=== PATIENT | female | born 1950 | race Caucasian/White ===

== ENCOUNTER → 2020-08-24 12:49 | Outpatient (CLI) | payer MEDICARE, SELFPAY ==
--- NOTE | ~2020-08-24 | DEXA_ITS ---
Bone Density Report Name: Sunita Lopez Age: 70 Sex: Female Ethnicity: White Date of : 1950 Indication: postmenopausal; screening for osteoporosis; height loss; history of glucocorticoids; rheumatoid arthritis; secondary osteoporosis; Referring Provider: Jacqueline Flaherty Study: Bone densitometry was performed. Exam Date: August 24, 2020 Accession number: [id number] Bone Density: Region BMD T-score Z-score Classification AP Spine (L1, L3, L4) 0.924 -1.2 1.0 Osteopenia Femoral Neck (Left) 0.626 -2.0 -0.1 Osteopenia Total Hip (Left) 0.940 0.0 1.6 Normal Femoral Neck (Right) 0.615 -2.1 -0.2 Osteopenia Total Hip (Right) 0.892 -0.4 1.2 Normal Total Hip Mean 0.916 -0.2 1.4 Normal World Health Organization criteria for BMD impression classify patients as: Normal (T-score at or above -1.0), Osteopenia (T-score between -1.0 and -2.5), or Osteoporosis (T-score at or below -2.5). 10-year Fracture Risk(1): Major Osteoporotic Fracture 20% Hip Fracture 4.6% Reported Risk Factors: [place] (), Neck BMD=0.615, BMI=49.3, glucocorticoids, rheumatoid arthritis, secondary osteoporosis (1) FRAX(R) Version 3.08. Fracture probability calculated for an untreated patient. Fracture probability may be lower if the patient has received treatment. Previous Exams: Region Exam Age BMD T-score BMD Change BMD Change Date g/cm2 vs Baseline vs Previous AP Spine(L1, L3, L4) 08/24/2020 70 0.924 -1.2 -0.038* -0.032* 04/11/2018 67 0.956 -0.9 -0.007 0.032* 10/09/2014 64 0.923 -1.2 -0.039* -0.039* 04/10/2011 60 0.963 -0.8 0.001 0.001 05/04/2006 55 0.962 -0.8 Total Hip(Left) 08/24/2020 70 0.940 0.0 -0.081* -0.027 04/11/2018 67 0.967 0.2 -0.054* 0.001 10/09/2014 64 0.966 0.2 -0.055* -0.012 04/10/2011 60 0.978 0.3 -0.043* -0.043* 05/04/2006 55 1.021 0.7 Total Hip(Right) 08/24/2020 70 0.892 -0.4 -0.086* -0.018 04/11/2018 67 0.909 -0.3 -0.068* -0.025 10/09/2014 64 0.934 -0.1 -0.044* -0.010 04/10/2011 60 0.944 0.0 -0.034* -0.034* 05/04/2006 55 0.978 0.3 *Denotes significance at 95% confidence level, LSC for AP Spine = 0.022 g/cm2, LSC for Total Hip = 0.027 g/cm2 Clinical Information Provided by Patient: Has taken Glucocorticoids Has rheum
== END ==
PROVIDERS: PCP Family Medicine; Visit Provider Internal Medicine Endocrinology, Diabetes & Metabolism
DX: Z78.0 Asymptomatic menopausal state (principal); M85.89 Other specified disorders of bone density and structure, multiple sites
CPT/HCPCS: 77080

== ENCOUNTER 2020-09-07 01:08 | Outpatient (CLI) | payer MEDICARE, SELFPAY ==
[2020-09-07 19:42] LABS: SARS-CoV-2 RNA PCR Negative
== END 2020-09-07 01:09 | disposition home or self-care (01) ==
LOC: ANHCOVIDDT 01:08
PROVIDERS: PCP Family Medicine; Visit Provider Internal Medicine Gastroenterology
DX: Z01.812 Encounter for preprocedural laboratory examination (principal); Z20.822 Contact with and (suspected) exposure to COVID-19
CPT/HCPCS: C9803; U0003

== ENCOUNTER 2020-09-10 00:17 | Day surgery (SDC) | payer MEDICARE, SELFPAY ==
[2020-07-21 12:29] VITALS: BMI 47.7
[2020-08-31 10:11] VITALS: BMI 49.3
[2020-09-10 08:28] VITALS: BP 157/71; PULSE 71; RESP 21; TEMP 36.6; O2SAT 92
[2020-09-10] MEDS: LACTATED RINGERS 1,000 ML 150 ML IV CONT (08:42)
--- NOTE | 2020-09-10 08:55 | WPDANESEPPF ---
Anes - Initial Pre Proc Eval Procedure: Operation Date: 09/10/20 09:30 Proposed Procedures p Screening Colonoscopy - Germain Rodriguez MD Date/Time: 09/10/20 08:55 Surgeon: Germain Rodriguez MD Pre Op Diagnosis: neoplasm screening Patient Data Age: 70 Gender: F Height: 5 ft Weight: 113.5 kg Last Vital Signs Temp 97.8 F 09/10/20 08:28 Pulse 71 09/10/20 08:28 Resp 21 H 09/10/20 08:28 BP 157/71 H 09/10/20 08:28 Pulse Ox 92 09/10/20 08:28 Allergies Allergy/AdvReac Type Severity Reaction Status Date / Time Iodinated Contrast Media Allergy Severe Itching Verified 09/10/20 08:21 shrimp Allergy Severe itchy mouth Verified 09/10/20 08:21 adhesive tape Allergy Intermediate Blister Verified 09/10/20 08:21 Home Medications Medication Instructions Recorded Confirmed Type B-complex with vitamin C 1 tablet PO DAILY 05/25/20 08/31/20 History artificial tears(hypromellose) 0.3 1 drop EACH EYE QID PRN 05/25/20 08/31/20 History % eye gel aspirin 81 mg tablet,delayed 81 mg PO DAILY 05/25/20 08/31/20 History release cetirizine 10 mg tablet 10 mg PO DAILY 05/25/20 08/31/20 History cholecalciferol (vitamin D3) 25 25 mcg PO DAILY 05/25/20 08/31/20 History mcg (1,000 unit) tablet folic acid 1 mg tablet 1 mg PO DAILY 05/25/20 08/31/20 History furosemide 20 mg tablet 20 mg PO DAILY tablet 05/25/20 08/31/20 History gabapentin 400 mg capsule 400 mg PO QID cap 05/25/20 08/31/20 History lisinopril 5 mg tablet 5 mg PO DAILY 05/25/20 08/31/20 History metoprolol tartrate 100 mg tablet 100 mg PO BID tablet 05/25/20 09/10/20 History omeprazole 20 mg capsule,delayed 20 mg PO DAILY 05/25/20 08/31/20 History release simvastatin 20 mg tablet 20 mg PO DAILY 05/25/20 08/31/20 History sulfasalazine 500 mg tablet 1 gm PO BID tablet 05/25/20 08/31/20 History tramadol 50 mg tablet 50 mg PO Q6H PRN 05/25/20 08/31/20 History sodium,potassium,mag sulfates 17.5 354 ml PO ONCE #354 ml 07/21/20 08/31/20 Rx gram-3.13 gram-1.6 gram oral soln Patient hx anesthesia problems: none Family hx anesthesia problems: none PMFSH Past Medical History Medical History Benign hypertension CKD (chronic kidney disease) stage 3, GFR 30-59 ml/min Diastolic heart failure Fibromyalgia GERD without esophagitis History of colon polyps Hyperparathyroidism Hypertensive heart disease with heart failure Lymphadenopathy (~2018) left arm Mixed hyperlipidemia Pulmonary embolism (~2010) Pulmonary nodule less than 6 cm determined by computed tomography of lung (~2016) Bilateral upper lungs Renal cyst, left (~2016) Rheumatoid arthritis without rheumatoid factor, unspecified site Rosacea Surgical History Surgical History History of bilateral mastectomy 2002 - due to recurrent benign lesions History of bunionectomy of both great toes 1980s History of laparoscopy adhesionolysis - Family History Family History Mother Family history of transient ischemic attacks Family history of rheumatoid arthritis Family history of atrial fibrillation Father Family history of rheumatoid arthritis Family history of hearing loss Other Family history of malignant neoplasm of ovary Hypertension Social History Social History Smoking status: Never smoker Second hand tobacco smoke exposure: No Alcohol intake: never Substance use: never Substance use type: does not use and unknown Living arrangements: with family Spiritual care concerns: No Anes - Eval Final PreProcedure Day of Procedure 09/10/20 08:55 Patient weight: super morbidly obese Heart: regular rate and rhythm Lungs: clear to auscultation Airway: Mallampati scale class II Neurological: alert and oriented Last o
--- NOTE | 2020-09-10 09:17 | PM.HPGS ---
History of Present Illness History of Present Illness Consent: Risks, benefits, and alternatives have been discussed and questions answered. Patient agrees to proceed with procedure. Chief complaint: neoplasm screening Narrative: Sunita Lopez is a 70 year old female with previous colon polyp, last colonoscopy 2009 Review of Systems Constitutional: Constitutional: Denies headache(s) and Denies weakness Eyes: Eyes: Denies blurry vision ENT: Reports Normal hearing present, Denies headache(s) and Denies neck pain Cardiovascular: Cardiovascular: Denies chest pain and Denies dyspnea Respiratory: Respiratory: Denies dyspnea Gastrointestinal: Gastrointestinal: Reports no additional gastrointestinal complaints Genitourinary: Genitourinary: Denies dysuria Musculoskeletal: Musculoskeletal: Denies neck pain Integumentary/Breasts: Skin/Breast: Denies dry skin Neurologic: Reports Normal hearing present, Denies headache(s) and Denies weakness Psychiatric: Psychiatric: Denies anxiety Endocrine: Endocrine: Denies change in body appearance Hematologic/Lymphatic: Hematologic/Lymphatic: Denies easy bleeding Allergic/Immunologic: Allergic/Immunologic: Denies urticaria PMFSH Past Medical History Medical History Benign hypertension CKD (chronic kidney disease) stage 3, GFR 30-59 ml/min Diastolic heart failure Fibromyalgia GERD without esophagitis History of colon polyps Hyperparathyroidism Hypertensive heart disease with heart failure Lymphadenopathy (~2018) left arm Mixed hyperlipidemia Pulmonary embolism (~2010) Pulmonary nodule less than 6 cm determined by computed tomography of lung (~2016) Bilateral upper lungs Renal cyst, left (~2017) Rheumatoid arthritis without rheumatoid factor, unspecified site Rosacea Surgical History Surgical History History of bilateral mastectomy 2002 - due to recurrent benign lesions History of bunionectomy of both great toes History of laparoscopy adhesionolysis - Family History Family History Mother Family history of transient ischemic attacks Family history of rheumatoid arthritis Family history of atrial fibrillation Father Family history of rheumatoid arthritis Family history of hearing loss Other Family history of malignant neoplasm of ovary Hypertension Social History Social History Smoking status: Never smoker Second hand tobacco smoke exposure: No Alcohol intake: never Substance use: never Substance use type: does not use and unknown Living arrangements: with family Spiritual care concerns: No Meds Home Medications and Allergies Home Medications Medication Instructions Recorded Confirmed Type B-complex with vitamin C 1 tablet PO DAILY 05/25/20 08/31/20 History artificial tears(hypromellose) 0.3 1 drop EACH EYE QID PRN 05/25/20 08/31/20 History % eye gel aspirin 81 mg tablet,delayed 81 mg PO DAILY 05/25/20 08/31/20 History release cetirizine 10 mg tablet 10 mg PO DAILY 05/25/20 08/31/20 History cholecalciferol (vitamin D3) 25 25 mcg PO DAILY 05/25/20 08/31/20 History mcg (1,000 unit) tablet folic acid 1 mg tablet 1 mg PO DAILY 05/25/20 08/31/20 History furosemide 20 mg tablet 20 mg PO DAILY tablet 05/25/20 08/31/20 History gabapentin 400 mg capsule 400 mg PO QID cap 05/25/20 08/31/20 History lisinopril 5 mg tablet 5 mg PO DAILY 05/25/20 08/31/20 History metoprolol tartrate 100 mg tablet 100 mg PO BID tablet 05/25/20 09/10/20 History omeprazole 20 mg capsule,delayed 20 mg PO DAILY 05/25/20 08/31/20 History release simvastatin 20 mg tablet 20 mg PO DAILY 05/25/20 08/31/20 History sulfasalazine 500 mg tablet 1 gm PO BID tablet 05/25/20 08/31/20 History tramadol 50 mg tablet 50 mg PO Q6H P
[2020-09-10 09:50] VITALS: BP 87/39; PULSE 66; RESP 20; O2SAT 92
[2020-09-10 10:00] VITALS: BP 110/57; PULSE 68; RESP 18; O2SAT 95
[2020-09-10 10:10] VITALS: BP 108/60; PULSE 62; RESP 18; O2SAT 94
[2020-09-10 10:20] VITALS: BP 105/57; PULSE 64; RESP 20; O2SAT 95
== END 2020-09-10 10:30 | disposition home or self-care (01) ==
PROVIDERS: PCP Family Medicine; Visit Provider Internal Medicine Gastroenterology
PROC: 0DJD8ZZ Inspection of Lower Intestinal Tract, Via Natural or Artificial Opening Endoscopic (ICD-10-PCS; CPT 45378; principal; 2020-09-10 09:30)
DX: Z12.11 Encounter for screening for malignant neoplasm of colon (principal); Z79.82 Long term (current) use of aspirin; D12.2 Benign neoplasm of ascending colon; D12.4 Benign neoplasm of descending colon; D12.3 Benign neoplasm of transverse colon; I13.0 Hypertensive heart and chronic kidney disease with heart failure and stage 1 through stage 4 chronic kidney disease, or unspecified chronic kidney disease; I50.30 Unspecified diastolic (congestive) heart failure; N18.30 Chronic kidney disease, stage 3 unspecified; E21.3 Hyperparathyroidism, unspecified; E78.2 Mixed hyperlipidemia; M06.9 Rheumatoid arthritis, unspecified; M79.7 Fibromyalgia; L71.9 Rosacea, unspecified; E66.8 Other obesity; Z68.42 Body mass index [BMI] 45.0-49.9, adult; K63.5 Polyp of colon; K64.8 Other hemorrhoids
CPT/HCPCS: 45385; 88305; J2001; J2370; J2704; J7120

== ENCOUNTER 2020-10-06 00:18 | Outpatient (CLI) | payer MEDICARE, SELFPAY ==
[2020-10-06 17:16] LABS: SARS-CoV-2 RNA PCR Negative
== END 2020-10-06 00:19 | disposition home or self-care (01) ==
LOC: ANHCOVIDDT 00:18
PROVIDERS: PCP Family Medicine; Visit Provider Internal Medicine Critical Care Medicine
DX: Z01.818 Encounter for other preprocedural examination (principal); Z20.822 Contact with and (suspected) exposure to COVID-19
CPT/HCPCS: C9803; U0003; U0005

== ENCOUNTER 2020-10-08 08:55 | Outpatient (CLI) | payer MEDICARE, SELFPAY ==
--- NOTE | 2020-10-13 10:27 | WPDSLEEPSTUD ---
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 She wakes up with a racing heartbeat. She will sit up and take deep breaths until her heart rate goes back to normal. She previously was tested for sleep issues but did not have insurance to cover the machine so she went untreated. She has had these problems for several years. Sometimes she wakes up several times at night and at other time she only wakes up once. She does not have good quality sleep. She wakes up feeling exhausted. She has difficulty falling asleep, waking up several times in the night and feeling sleepy during the day. There is a family history with her mother having sleep apnea but refusing to be treated. She occasionally snores at night. It is never loud enough that others complain about it. She frequently awakens at night with heartburn, belching or coughing. She occasionally awakens from sleep feeling short of breath. She rarely has trouble sleep with a cold. She frequently gasp for breath during the night. She rarely has breathing problems at night observed by others. She does not sweat excessively at night. She occasionally notices her heart pounding or beating irregularly at night, occasionally falls asleep during the day, occasionally involuntarily but never while driving. She does not fall asleep during physical effort. She does not have loss of muscle tone with strong emotion. She has not have daytime difficulties due to excessive sleepiness. She does not feel paralyzed on waking or falling asleep nor does she have vivid dreamlike scenes upon awakening or falling asleep. She is never afraid to go to sleep. she does not have nightmares. She does not remember her dreams. She rarely has racing thoughts. She rarely feels sad, depressed or anxious. She rarely has muscular tension. She does not notice parts of her body jerking. She rarely kicks at night. She occasionally has crawling and aching feelings in her legs at night. She rarely has leg pain during the night. She frequently wakes up with morning jaw pain. She frequently grinds her teeth at night. She occasionally has bothered by pain during the day. She occasionally is awakened by pain during the night. She frequently wakes up feeling stiff in the morning, rarely with sore or achy muscles, rarely with pain in the neck and spine. She has fainting spells when she stands up too quickly. She has memory problems, fatigue, and palpitations. 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 Normal bedtime is midnight, taking a few hours to fall asleep, waking 2 or 3 times at night. These awakenings vary in length. They may happen soon after falling asleep or in the middle of the night. She will sit up, take deep breaths and try to get back to sleep. She wakes in the morning between 9 and 10:00 a.m.. On weekends she goes to bed at midnight, may stay in bed until 10 or 11:00 a.m.. She does not nap intentionally. She sometimes naps incidentally. A short nap is not refreshing. She is usually drowsy in the morning for 1 hour or longer. She feels better in the morning compared to other times of day. Habits: Never smoked tobacco. Caffeine 1 cup per day. No alcohol or recreational drugs. [facility] Past Medical History Medical History Allergies Arthritis Benign hypertension CHF (congestive heart failure) CKD (chronic kidney disease) stage 3, GFR 30-59 ml/min Diastolic heart failure Fibromyalgia GERD without esophagitis History of col
[2020-10-13 13:41] VITALS: BMI 47.9
== END 2020-10-08 08:56 | disposition home or self-care (01) ==
LOC: ANHCSM 08:56
PROVIDERS: PCP Family Medicine; Visit Provider Internal Medicine Cardiovascular Disease
DX: G47.33 Obstructive sleep apnea (adult) (pediatric) (principal); G47.34 Idiopathic sleep related nonobstructive alveolar hypoventilation
CPT/HCPCS: 95810

== ENCOUNTER → 2021-03-11 14:15 | Outpatient (CLI) | payer MEDICARE, SELFPAY ==
--- NOTE | ~2021-03-11 | XR_ITS ---
XR foot LT standing 2V 03/11/2021 15:14 Indication: Rheumatoid arthritis. Left foot pain. Procedure: 2 views left foot Comparison: No prior studies for comparison. Findings: There are surgical changes of hallux correction. There is mild osteoarthritis of the first MTP joint with mild hallux valgus. There are degenerative changes of the second metatarsal phalangeal joint. Osteopenia. Diffuse soft tissue swelling is noted. No acute fracture or traumatic malalignmen t. Impression: 1: Mild polyarticular osteoarthritis. Reviewed, dictated and finalized at location A. Impression: 1: Mild polyarticular osteoarthritis.
--- NOTE | ~2021-03-11 | XR_ITS ---
EXAMINATION: XR knee RT 3V DATE: 03/11/2021 15:14 INDICATION: Rheumatoid arthritis without rheumatoid factor. TECHNIQUE: 3 views of right knee on 4 radiographs were obtained. COMPARISON: Right knee radiographs 01/16/18 FINDINGS: There is varus angulation at the knee. No fracture. There is moderate osteoarthritis of med ial compartment and mild osteoarthritis of lateral and patellofemoral compartments. No knee joint eff usion. A calcification posterior to the knee is likely a loose body in a Goncalves's cyst. IMPRESSION: 1. Moderate right knee osteoarthritis. Reviewed, dictated and finalized at location A.
--- NOTE | ~2021-03-11 | XR_ITS ---
EXAMINATION: XR lumbar spine min 4V EXAM DATE: 03/11/2021 15:14 INDICATION: Rheumatoid arthritis. TECHNIQUE: Lumber spine frontal, lateral, bilateral oblique projections. Coned down frontal and lat eral L5-S1 lumbar projections for interpretation. Comparison is made to prior examination from 018. FINDINGS: No spondylolysis. Moderate disc disease L5-S1. Otherwise mild to moderate lumbar disc disea se. Moderate lower lumbar facet arthropathy. 2 mm retrolisthesis L2 on L3 and L3 on L4. Mild lumbar d extroscoliosis. Sacrum, sacroiliac joints, sacral arcuate lines are intact. Paraspinal soft tissue is unremarkable. IMPRESSION: Moderate lower lumbar spondylosis. Reviewed, dictated and finalized at location B.
--- NOTE | ~2021-03-11 | XR_ITS ---
XR hand BI arthritis min 3V 03/11/2021 15:14 Indication: Rheumatoid arthritis. Hand pain. Procedure: 4 views of each hand Comparison: No prior studies for comparison. Findings: There is mild polyarticular osteoarthritis of the interphalangeal joints as well as the fir st MCP and CMC joints. No erosive changes are identified. No fracture, subluxation or dislocation. No focal soft tissue abnormality. No foreign bodies. Impression: 1: Mild polyarticular osteoarthritis of the hands. Reviewed, dictated and finalized at location A. Impression: 1: Mild polyarticular osteoarthritis of the hands.
--- NOTE | ~2021-03-11 | XR_ITS ---
XR foot RT standing 2V 03/11/2021 15:14 Indication: Rheumatoid arthritis. Right foot pain. Procedure: 2 views right foot Comparison: No prior studies for comparison. Findings: There are surgical changes of hallux correction. There is mild osteoarthritis of the first and second MTP joints. Lisfranc joint intact. No erosive changes. No fracture or traumatic malalignment. Impression: 1: Mild polyarticular osteoarthritis. Reviewed, dictated and finalized at location A. Impression: 1: Mild polyarticular osteoarthritis.
--- NOTE | ~2021-03-11 | XR_ITS ---
EXAMINATION: XR knee LT 3V DATE: 03/11/2021 15:13 INDICATION: Rheumatoid arthritis without rheumatoid factor. TECHNIQUE: 3 views of left knee were obtained. COMPARISON: Left knee radiographs 05/20/2018 FINDINGS: Bone alignment is normal. No fracture. There is moderate osteoarthritis of medial and salcido lofemoral compartments and mild osteoarthritis of lateral compartment. No knee joint effusion. IMPRESSION: 1. Moderate left knee osteoarthritis. Reviewed, dictated and finalized at location A.
== END ==
PROVIDERS: PCP Family Medicine; Visit Provider Internal Medicine
DX: M19.042 Primary osteoarthritis, left hand (principal); M19.041 Primary osteoarthritis, right hand; M19.072 Primary osteoarthritis, left ankle and foot; M19.071 Primary osteoarthritis, right ankle and foot; M17.0 Bilateral primary osteoarthritis of knee; M47.817 Spondylosis without myelopathy or radiculopathy, lumbosacral region
CPT/HCPCS: 72110; 73130; 73562; 73620

== ENCOUNTER 2021-03-13 01:22 | Inpatient (IN) | payer MEDICARE, SELFPAY ==
[2021-03-13] VITALS (41 sets, daily range): BP systolic 120–163; BP diastolic 51–78; PULSE 56–84; RESP 11–23; TEMP 36.1–36.6; O2SAT 89–98; BMI 47.2
--- NOTE | ~2021-03-13 | NM_ITS ---
EXAMINATION: NM pulmonary perfusion DATE: 03/13/2021 08:03 INDICATION: Dyspnea. TECHNIQUE: 4.02 mCi Tc-99m MAA was administered intravenously for perfusion images. Scintigraphic im ages of the chest were obtained. COMPARISON: Chest single view 03/13/2021, chest CT 01/17/2019 FINDINGS: Perfusion images show moderate sized defects in left upper lobe and right lower lobe. There are small defects in all lobes. IMPRESSION: 1. Nondiagnostic (intermediate probability for pulmonary embolism). Reviewed, dictated and finalized at location A.
--- NOTE | ~2021-03-13 | XR_ITS ---
EXAMINATION: XR chest 1V portable DATE: 03/13/2021 01:43 INDICATION: Dyspnea. Allergic reaction. Swelling. TECHNIQUE: A single frontal view of the chest was obtained. COMPARISON: Chest 2 views 01/20/2015, CT abdomen 01/30/2019 FINDINGS: The patient is rotated to her left. There is no pneumonia, pleural effusion, or pneumothora x. The heart size is normal. There is a prominent left paracardial fat pad. IMPRESSION: 1. No acute cardiopulmonary disease. Reviewed, dictated and finalized at location A.
--- NOTE | ~2021-03-13 | US_ITS ---
EXAMINATION: US venous doppler LE EXAM DATE: 03/15/2021 16:46 INDICATION: Elevated d-dimer, shortness of breath. Respiratory abnormality. History of pulmonary embo li. Indeterminate probability pulmonary embolism. TECHNIQUE: Multiple grayscale, color flow and Doppler images of the lower extremity deep venous syste ms bilaterally were obtained and reviewed. Correlation is made to perfusion scan performed 03/13/2021. FINDINGS: Right side: The right common femoral, femoral and profunda veins demonstrate normal color flow, respi ratory variation, augmentation and compressibility. Compressibility, color flow confirmed within the right popliteal, posterior tibial, peroneal, and greater saphenous veins. Left side: The left common femoral, femoral and profunda veins demonstrate normal color flow, respira tory variation, augmentation and compressibility. Compressibility, color flow confirmed within the l eft popliteal, posterior tibial, peroneal, and greater saphenous veins. IMPRESSION: 1. No lower extremity deep venous thrombosis bilaterally. Reviewed, dictated and finalized at location A.
--- NOTE | ~2021-03-13 | CT_ITS ---
EXAMINATION:CT chest high resolution wo co DATE: 03/14/2021 09:08 INDICATION: Shortness of breath. TECHNIQUE: Computed tomography (CT) of the chest was performed without intravenous contrast. Automate d exposure control and iterative reconstruction technique were employed. The dose-length product (DLP ) was 515.58 mGy-cm. COMPARISON: Chest CT 01/17/2019 FINDINGS: The lungs demonstrate mosaic attenuation, likely small airways disease. There are scattered areas of subsegmental atelectasis in the lungs. No bronchiectasis or honeycombing. A calcified left lung nodule is consistent with old granulomatous disease. There are chronic 5 mm and 3 mm nodules in left lower lobe, likely benign. No pleural effusion. The heart size is normal. No pericardial effusio n. There are coronary artery calcifications. The central pulmonary arteries are enlarged, consistent with pulmonary arterial hypertension. There are bilateral mastectomies. There is a 1.6 cm cyst in lef t kidney. There is mild thoracic spondylosis. IMPRESSION: 1. Mosaic attenuation in the lungs, likely small airways disease. 2. Enlarged central pulmonary, consistent with pulmonary arterial hypertension. Reviewed, dictated and finalized at location A.
--- NOTE | 2021-03-13 01:33 | ECG_ITS ---
Measurements Intervals [place] Rate: 65 P: 31 AL: 186 QRS: 55 QRSD: 90 T: 72 QT: 383 QTc: 399 Interpretive Statements SINUS RHYTHM MINIMAL Q WAVES- INFERIOR LEADS BORDERLINE T WAVE ABNORMALITY- ANTEROLAT/HIGH LAT LEADS BASELINE ARTIFACT- I, II, III, AVR, AVL, AVF, V1-V6 BORDERLINE ECG Electronically Signed On 03-13-2021 7:09:54 CDT by Marcus Vasquez D.O.
--- NOTE | 2021-03-13 01:49 | ED.GENADULT ---
HPI - General Adult General Chief complaint: Allergic Reaction Stated complaint: allergic rxn? Source: RN notes reviewed History of Present Illness HPI narrative: Patient presents emergency department from home via EMS for allergic reaction. Patient states she was just started on leflunomide for her rheumatoid arthritis she states she took her second dose approximately 1 PM on 03/12/2021. States that approximately 7 PM that evening she began to have a feeling of burning in the back of her hands and feet she denies noting any rashes was afraid she was having allergic reaction of the medication and called EMS. When EMS arrived they noted the patient had a pulse ox of 89-90 on room air. Patient states she has been having issues with shortness of breath and is being worked up by her PCP she supposed to be seeing a [id number] armor crewman in an upcoming appointment for further evaluation she denies any tobacco use she denies any fevers or chills, swelling of the lips or tongue difficulty swallowing chest pain abdominal pain nausea vomiting or any other symptoms Related Data Home Medications Medication Instructions Recorded Confirmed B-complex with vitamin C 1 tablet PO DAILY 05/25/20 03/13/21 aspirin 81 mg tablet,delayed 81 mg PO HS 05/25/20 03/13/21 release cetirizine 10 mg tablet 10 mg PO DAILY PRN 05/25/20 03/13/21 cholecalciferol (vitamin D3) 25 25 mcg PO DAILY 05/25/20 03/13/21 mcg (1,000 unit) tablet omeprazole 20 mg capsule,delayed 20 mg PO QPM 05/25/20 03/13/21 release tramadol 50 mg tablet 50 mg PO Q6H PRN 05/25/20 03/13/21 artificial tears solution 1 drp OPHTHALMIC (EYE) BID 03/13/21 03/13/21 gabapentin 400 mg PO DAILY 03/13/21 03/13/21 gabapentin 800 mg PO HS 03/13/21 03/13/21 lisinopril 5 mg PO HS 03/13/21 03/13/21 prednisone See Rx Instructions .ROUTE .COMPLEX 03/13/21 03/13/21 simvastatin 20 mg PO HS 03/13/21 03/13/21 sulfasalazine 1,000 mg PO BID 03/13/21 03/13/21 Allergies Allergy/AdvReac Type Severity Reaction Status Date / Time Iodinated Contrast Media Allergy Severe Itching Verified 07/11/21 08:26 shrimp Allergy Severe itchy mouth Verified 03/13/21 08:26 adhesive tape Allergy Intermediate Blister Verified 03/13/21 08:26 fish derived Allergy Unknown itchy mouth Verified 03/13/21 08:26 leah Allergy Unknown itchy mouth Verified 03/13/21 08:26 Review of Systems Review of Systems: Narrative: Gen.: Denies fevers or chills Eyes: Denies eye pain or visual change ENT: Denies congestion Respiratory: Denies shortness of breath or cough CV: Denies chest pain or palpitations GI: Denies abdominal pain nausea, emesis or diarrhea denies burning, urgency, frequency or hematuria Musculoskeletal: Denies back pain or muscle pain Neuro: Denies numbness, tingling, weakness or focal weakness Skin: Denies rash reports burning on back of hands and feet Except as documented, all other systems reviewed and negative [facility] Past Medical History Medical History Allergies Arthritis Benign hypertension CHF (congestive heart failure) CKD (chronic kidney disease) stage 3, GFR 30-59 ml/min Diastolic heart failure Encounter for screening for other viral diseases Fibromyalgia GERD without esophagitis History of colon polyps Hyperparathyroidism Hypertensive heart disease with heart failure Lymphadenopathy (~2018) left arm Mixed hyperlipidemia Pulmonary embolism (~2010) Pulmonary nodule less than 6 cm determined by computed tomography of lung (~2016) Bilateral upper lungs Renal cyst, left (~2017) Rheumatoid arthritis without rheumatoid factor, unspecified site Rosacea Surgical History Surgical History History of bilateral mastectomy 2002 - due to recurrent benign lesions History of bunionectomy of both great toes History of laparoscopy adhesionolysis - Family History Family History (Updated 03/13/21 @ 18:44 by
[2021-03-13 01:50] LABS: Basophils Absolute Auto 0.1 K/mm3 (0.0-0.1); Basophils Percent Auto 0.9 % (0.2-1.2); Eosinophils Absolute Auto 0.1 K/mm3 (0-0.3); Eosinophils Percent Auto 0.8 % (0-4.4); Hematocrit 45.6 % (37.0-47.0); Hemoglobin 14.3 g/dL (12.0-15.0); Immature Granulocyte Absolute 0.02 K/mm3 (0.00-0.031); Immature Granulocyte Percent A 0.3 % (0-0.5); Lymphocytes Percent Auto 16.7 % (18.3-44.2); Mean Corpuscular HGB Conc 31.4 g/dl (32-36); Mean Corpuscular Hemoglobin 30.9 pg (26-34); Mean Corpuscular Volume 98.5 fl (80-100); Mean Platelet Volume 9.9 fl (7.4-10.4); Monocytes Absolute Auto 0.6 K/mm3 (0.1-0.6); Monocytes Percent Auto 8.3 % (2.6-8.5); Neutrophils Absolute Auto 4.8 K/mm3 (1.3-6.7); Nucleated Red Blood Cells Perc 0.3 % (0.0-0.2); Platelet Count Result 217 k/mm3 (150-375); Red Blood Count 4.63 M/mm3 (4.2-5.4); Red Cell Distribution Width 13.6 % (11.5-14.5); White Blood Count 6.6 K/mm3 (4.5-10.0)
[2021-03-13] MEDS: diphenhydrAMINE HCl INJ 50 MG/ML VIAL 25 MG IV PUSH (01:51)
[2021-03-13 02:00] LABS: INR 0.9; Prothrombin Time 12.2 Seconds (11.1-14.7)
[2021-03-13 02:01] LABS: Partial Thromboplastin Time 26.8 SECONDS (22.3-36.8)
[2021-03-13 02:07] LABS: Anion Gap 6 mmol/L (8-16); Blood Urea Nitrogen 22 mg/dL (7-17); Carbon Dioxide 32 mmol/L (22-30); Chloride 103 mmol/L (98-107); Estimated CRCL calculation 45 ml/min; Estimated Glomerular Filt Rate 44; Glucose 103 mg/dL (65-105); Potassium 4.5 mmol/L (3.4-5.0); Sodium 141 mmol/L (137-145)
[2021-03-13 02:19] LABS: NT Pro B Type Natriuretic Pept 756 pg/mL (5-100); Troponin I < 0.012 ng/mL (0.000-0.034)
--- NOTE | 2021-03-13 03:16 | PC.NURSE ---
Contacted lab for d-dimer add on, she stated needs to be redrawn due to it hemolyzed.
[2021-03-13 04:33] LABS: D Dimer 0.68 ug/mL (<0.48)
[2021-03-13] MEDS: methylPREDNISolone SOD SUCC 125 MG VIAL IV PUSH (04:44)
--- NOTE | 2021-03-13 06:23 | PC.NURSE ---
ERP tested patient without oxygen, her sat decreased to 88% on RA. Patient placed back on her 2L via NC.
--- NOTE | 2021-03-13 07:29 | PC.NURSE ---
Patient to VQ scan at this time.
--- NOTE | 2021-03-13 08:17 | ADMGEN ---
This patient, Sunita Lopez, was admitted to Medical Room 259-01. Patient/family oriented to hospital policies and general routines including ID bracelet, bed and alarms, visiting hours, pain management, procedures, bathroom and other care routines, personal items, smoking policy, room service/diet, and visiting hours. Information on how to activate the Rapid Response Team has been discussed. Patient/Family are encouraged to report perceived risks to care and to ask questions if they do not understand what they are told or what they should do.
--- NOTE | 2021-03-13 16:27 | PM.IMHP ---
H&P: HPI History of Present Illness Date/Time: 03/13/21 16:27 patient is 70-year-old female with history of rheumatoid arthritis patient had been taking sulfasalazine for her pain control however the medication is unavailable and patient had been out the medication for few weeks, patient was seen by her rheumatology with severe pain in her hands and morning stiffness, started the patient trial of leflunamide patient stated after taking the medicine for 2 days patient developed burning itching her hands and legs and was short of breath presented emergency department for further evaluate. upon arrival to emergency depart patient was saturating in 89-90 on room air, patient stated he does have a chronic shortness of breath and supposed to be seen folder machine, patient denied any oropharyngeal reaction to the medication no lip, toung, swelling or difficulty with swallowing, D-dimer slightly elevated to 0.68, due to elevated creatinine and allergy to contrast dye, CTA of the chest was not done, V/Q scan showed intermediate probability patient appears clinically stable and not hypoxic, full dose anticoagulation was not started due to recent surgery and patient does not appear to be significantly hypoxic, we will consult Dr. Borja pulmonology further evaluation and recommendation. Chief Complaint: short of breath Review of Systems Review of Systems: All systems reviewed & are unremarkable except as noted in HPI and below PMFSH Past Medical History Medical History Allergies Arthritis Benign hypertension CHF (congestive heart failure) CKD (chronic kidney disease) stage 3, GFR 30-59 ml/min Diastolic heart failure Encounter for screening for other viral diseases Fibromyalgia GERD without esophagitis History of colon polyps Hyperparathyroidism Hypertensive heart disease with heart failure Lymphadenopathy (~2018) left arm Mixed hyperlipidemia Pulmonary embolism (~2010) Pulmonary nodule less than 6 cm determined by computed tomography of lung (~2016) Bilateral upper lungs Renal cyst, left (~2017) Rheumatoid arthritis without rheumatoid factor, unspecified site Rosacea Surgical History Surgical History History of bilateral mastectomy 2002 - due to recurrent benign lesions History of bunionectomy of both great toes 1980s History of laparoscopy adhesionolysis - Family History Family History Mother Family history of transient ischemic attacks Family history of rheumatoid arthritis Family history of atrial fibrillation Hypertension Heart disease Father Family history of rheumatoid arthritis Family history of hearing loss Alzheimers disease Heart disease Sibling Heart disease Parkinsons disease Grandparent Hypertension Heart disease Other Family history of malignant neoplasm of ovary Social History Social History Smoking status: Never smoker Second hand tobacco smoke exposure: No Alcohol intake: never Substance use: never Substance use type: does not use Additional living arrangements comments: MOM Gender identity (if verbalized by the patient): Female Spiritual care concerns: No Meds Home Medications and Allergies Home Medications Medication Instructions Recorded Confirmed Type B-complex with vitamin C 1 tablet PO DAILY 05/25/20 03/13/21 History aspirin 81 mg tablet,delayed 81 mg PO HS 05/25/20 03/13/21 History release cetirizine 10 mg tablet 10 mg PO DAILY PRN 05/25/20 03/13/21 History cholecalciferol (vitamin D3) 25 25 mcg PO DAILY 05/25/20 03/13/21 History mcg (1,000 unit) tablet omeprazole 20 mg capsule,delayed 20 mg PO QPM 05/25/20 03/13/21 History release tramadol 50 mg tablet 50 mg PO Q6H PRN 05/25/20 03/13/21 History furosemide 20 mg t
[2021-03-13] MEDS: ACETAMINOPHEN 325 MG TABLET 650 MG PO (17:08)
--- NOTE | 2021-03-13 17:17 | PC.NURSE ---
Patient stated she has a double mastectomy. Patient stated she can have her blood pressure taken in her right arm, but not her left arm.
[2021-03-13] MEDS: predniSONE 2.5 MG TABLET 5 MG BY MOUTH (17:49)
[2021-03-13] MEDS: HEPARIN SODIUM 5,000 UNITS/ML VIAL 5000 UNITS SUB-Q (17:49)
[2021-03-13] MEDS: sulfaSALAzine 500 MG TABLET 1000 MG PO (17:49)
--- NOTE | 2021-03-13 19:54 | PM.CNPUL ---
Assessment and Plan Assessment and plan (1) Acute respiratory failure with hypoxia: Code(s): J96.01 - Acute respiratory failure with hypoxia Status: Acute Assessment and Plan: She was admitted with low saturation, shortness of breath, now requires 3 L/min to maintain adequate oxygenation. High resolution chest CT shows mosaic attenuation which is consistent with asthma, as well as atelectasis. She is having an adverse drug reaction to leflunomide with neuropathy in hands, hypoxemia and coughing and this can be seen. She has no history of asthma, does have some wheezing at times with exertion, has not been on inhaled medications. She has no smoking history, no second hand smoke exposure or occupational exposure. A sleep study showed nocturnal hypoxemia in October, a prior study showed KEO; she has not been treated for nocturnal hypoxemia yet. She probably has combination of KEO and nocturnal hypoxemia independent of the KEO. She has a history of pulmonary emboli in 2010 several months after long plane ride from [place]. She does not have eosinophilia. She has rheumatoid arthritis, may have drug-induced lung disease from the leflunomide. Leflunomide can cause pneumonitis, infection and rheumatoid nodules, with typical symptoms of fever, cough, and dyspnea. She does not have the typical findings on high resolution computed tomography (HRCT) seen in drug induced lung disease with leflunomide : ground glass opacities, bilateral reticular opacities, and honeycombing, or areas of consolidation. Most of the drugs used to treat rheumatoid arthritis (RA) have been reported to cause pneumonitis, including methotrexate, leflunomide, biologic agents, sulfasalazine. She was on sulfasalazine until 3 weeks ago, had increase in symptoms after starting leflunomide - peripheral neuropathy, cough, shortness of breath. PFTs after discharge will be needed to further evaluate. PLAN: 1. echocardiogram to evaluate for pulmonary hypertension noted on high resolution chest CT; she is large, BMI 47.2, and this could make an echo technically difficult. 2. PFTs after discharge, when she is at her baseline. 3. Home O2 study before discharge. She may need O2 in the daytime. She does not have hypercapnia, so this does not appear to be obesity hypoventilation. 4. Start treatment for asthma with inhaled steroids and long acting bronchodilator therapy. Symbicort. 5. VQ was indeterminate, and this might be due to asthma. The VQ is only helpful with normal lungs. The air trapping with asthma makes using this for excluding chronic thromboembolic disease not as accurate. 6. Treat atelectasis with incentive spirometer and bronchodilator as well as increase mobilization. 7. If (+) echo for pulm HTN, treat all the possible causes including sleep issues, hypoxemia, RA, and consider right heart cath. Group I pulmonary hypertension will include PHTN from RA, and Group III PHTN will include chronic lung disease and KEO. 8. Lower extremity dopplers ; she had PE in 2010, provoked by long plane ride. (2) Shortness of breath: Code(s): R06.02 - Shortness of breath Status: Acute Assessment and Plan: Shortness of breath may be multifactorial; this has been increasing for a month, worse with exertion; she has rheumatoid arthritis since age 17, has been on multiple medications to treat this, may have drug induced lung disease due to leflunomide, asthma, deconditioning with morbid obesity; possible chronic thromboembolic disease. She did have PE in 2010 after long plane ride, so will check lower extremity dopplers. (3) Nocturnal hypoxemia: Onset Date: ~10/2020 Code(s): G47.34 - Idiopathic sleep related nonobstructive alveolar hypoventilation Status: Acute Assessment and Plan: Has KEO on a test in 2016, AHI was 10 w
[2021-03-13] MEDS: lisinopriL 5 MG TABLET PO (20:40)
[2021-03-13] MEDS: METOPROLOL TARTRATE 50 MG TAB 100 MG PO (20:40)
[2021-03-13] MEDS: SIMVASTATIN 20 MG TABLET PO (20:40)
[2021-03-13] MEDS: ASPIRIN 81 MG ENTERIC TABLET PO (20:41)
[2021-03-13] MEDS: ARTIFICIAL TEARS OPHTH SOLN 15 ML BOTTLE 1 DROP EACH EYE (20:41)
[2021-03-13] MEDS: GABAPENTIN 400 MG CAPSULE 800 MG PO (20:41)
[2021-03-14] VITALS (10 sets, daily range): BP systolic 105–130; BP diastolic 51–56; PULSE 51–74; RESP 16–20; TEMP 36.1; O2SAT 95–99
[2021-03-14 05:46] LABS: Alveolar/Arterial O2 Gradient 7.3 mmHg; Base Excess ABG -0.4 mEq/l (+/-2.0); Carboxyhemoglobin 0.6 % THb (0-2.0); Fractional Inspired Oxygen 21 %; HCO3 ABG 25.1 mEq/l (22.0-26.0); Methemoglobin ABG 0.3 %THb (0-1.5); Oxygen Content ABG 19.3 %vol (16.0-22.0); Oxygen Saturation ABG 96.6 % (95.0-100.0); Oxyhemoglobin 94.9 % THb (90.0-100.0); PCO2 ABG 44.4 mmHg (35.0-45.0); PO2 ABG 89.3 mmHg (80.0-100.0); PO2 FiO2 Ratio Arterial Blood 4.25 %; Reduced Hemoglobin 4.2 %THb (0-5.0); Total Hemoglobin 14.4 g/dL (12.0-18.0); pH ABG 7.371 (7.350-7.450)
[2021-03-14 05:47] LABS: Modified Allen's Test Unable to perform; Site Drawn RIGHT RADIAL
[2021-03-14 05:48] LABS: Basophils Percent Auto 0.2 % (0.2-1.2); Hematocrit 39.9 % (37.0-47.0); Immature Granulocyte Absolute 0.05 K/mm3 (0.00-0.031); Immature Granulocyte Percent A 0.5 % (0-0.5); Lymphocytes Absolute Auto 0.99 K/mm3 (0.9-3.2); Lymphocytes Percent Auto 9.3 % (18.3-44.2); Mean Corpuscular HGB Conc 32.6 g/dl (32-36); Mean Corpuscular Hemoglobin 31.5 pg (26-34); Mean Corpuscular Volume 96.6 fl (80-100); Mean Platelet Volume 10.3 fl (7.4-10.4); Monocytes Absolute Auto 0.6 K/mm3 (0.1-0.6); Monocytes Percent Auto 5.9 % (2.6-8.5); Neutrophils Absolute Auto 8.9 K/mm3 (1.3-6.7); Neutrophils Percent Auto 84.1 % (45.5-73.1); Platelet Count Result 211 k/mm3 (150-375); Red Blood Count 4.13 M/mm3 (4.2-5.4); Red Cell Distribution Width 13.6 % (11.5-14.5); White Blood Count 10.6 K/mm3 (4.5-10.0)
[2021-03-14 05:48] LABS: Device NASAL CANNULA
[2021-03-14 07:14] LABS: Alanine Aminotransferase 16 U/L (4-35); Albumin Level 3.6 g/dL (3.5-5.1); Alkaline Phosphatase 43 U/L (38-126); Anion Gap 6 mmol/L (8-16); Aspartate Amino Transferase 22 U/L (14-36); Bilirubin,Total 0.3 mg/dL (0.2-1.3); Blood Urea Nitrogen 25 mg/dL (7-17); Calcium 9.8 mg/dL (8.4-10.2); Carbon Dioxide 29 mmol/L (22-30); Chloride 102 mmol/L (98-107); Estimated CRCL calculation 49 ml/min; Estimated Glomerular Filt Rate 49; Glucose 111 mg/dL (65-105); Potassium 4.3 mmol/L (3.4-5.0); Sodium 137 mmol/L (137-145)
[2021-03-14] MEDS: METOPROLOL TARTRATE 50 MG TAB 100 MG PO ×2 (08:08→20:28)
[2021-03-14] MEDS: FUROSEMIDE 20 MG TABLET PO (08:09)
[2021-03-14] MEDS: LORATADINE 10 MG TABLET PO (08:09)
[2021-03-14] MEDS: sulfaSALAzine 500 MG TABLET 1000 MG PO ×2 (08:09→17:05)
[2021-03-14] MEDS: CHOLECALCIFEROL 1,000 UNITS TABLET 1000 UNITS PO (08:10)
[2021-03-14] MEDS: GABAPENTIN 400 MG CAPSULE PO (08:10)
[2021-03-14] MEDS: FOLIC ACID 1 MG TABLET PO (08:10)
[2021-03-14] MEDS: VITAMIN B COMPLEX/VIT C CAPSULE 1 EACH PO (08:10)
[2021-03-14] MEDS: predniSONE 2.5 MG TABLET BY MOUTH ×2 (08:10→17:51)
[2021-03-14] MEDS: ARTIFICIAL TEARS OPHTH SOLN 15 ML BOTTLE 1 DROP EACH EYE ×2 (08:11→20:28)
[2021-03-14] MEDS: HEPARIN SODIUM 5,000 UNITS/ML VIAL 5000 UNITS SUB-Q ×2 (08:11→20:28)
--- NOTE | 2021-03-14 08:54 | PC.NURSE ---
pt transported to CT
--- NOTE | 2021-03-14 09:38 | PC.NURSE ---
pt returned from CT
--- NOTE | 2021-03-14 13:12 | PM.IMPN ---
Progress Note: A&P Assessment and Plan (1) Allergic reaction to drug: Code(s): T78.40XA - Allergy, unspecified, initial encounter Status: Acute Assessment and Plan: 03/14/21 13:12 03/13 patient is 70-year-old female with history of rheumatoid arthritis patient had been taking sulfasalazine for her pain control however the medication is unavailable and patient had been out the medication for few weeks, patient was seen by her rheumatology with severe pain in her hands and morning stiffness, started the patient trial of leflunamide patient stated after taking the medicine for 2 days patient developed burning itching her hands and legs and was short of breath presented emergency department for further evaluate. upon arrival to emergency depart patient was saturating in 89-90 on room air, patient stated he does have a chronic shortness of breath and supposed to be seen statistical machine servicer, patient denied any oropharyngeal reaction to the medication no lip, toung, swelling or difficulty with swallowing, D-dimer slightly elevated to 0.68, due to elevated creatinine and allergy to contrast dye, CTA of the chest was not done, V/Q scan showed intermediate probability patient appears clinically stable and not hypoxic, full dose anticoagulation was not started due to recent surgery and patient does not appear to be significantly hypoxic, we will consult Dr. Borja pulmonology further evaluation and recommendation. 0712, on 03/13 patient was seen by Dr. Borja pulmonology and workup is in progress to further evaluate patient shortness of breath, today patient is feeling much better will resume sulfasalazine as this is now available in the market patient start taking, patient clinically stable, patient be seen by Dr. Borja and further recommendation to follow. (2) Rheumatoid arthritis without rheumatoid factor, unspecified site: Qualifiers: Rheumatoid arthritis location: unspecified site Qualified Code(s): M06.00 - Rheumatoid arthritis without rheumatoid factor, unspecified site Code(s): M06.00 - Rheumatoid arthritis without rheumatoid factor, unspecified site Status: Acute Assessment and Plan: detail is above, sulfasalazine is now available will resume while in the hospital and hold leflunamide (3) CKD (chronic kidney disease) stage 3, GFR 30-59 ml/min: Qualifiers: Chronic kidney disease stage 3 subtype: stage 3a (GFR 45-59) Qualified Code(s): N18.31 - Chronic kidney disease, stage 3a Code(s): N18.3 - Chronic kidney disease, stage 3 (moderate) Status: Acute Assessment and Plan: will gently hydrate the patient and monitor (4) GERD without esophagitis: Code(s): K21.9 - Gastro-esophageal reflux disease without esophagitis Status: Acute Assessment and Plan: continue PPI (5) Shortness of breath: Code(s): R06.02 - Shortness of breath Status: Acute Assessment and Plan: V/Q scan is intermediate, patient is not hypoxic, not tachycardia on 2 L clinically stable, patient will be seen by pulmonology and further recommendation to follow Subjective Date/time seen: 03/14/21 13:12 03/13 patient is 70-year-old female with history of rheumatoid arthritis patient had been taking sulfasalazine for her pain control however the medication is unavailable and patient had been out the medication for few weeks, patient was seen by her rheumatology with severe pain in her hands and morning stiffness, started the patient trial of leflunamide patient stated after taking the medicine for 2 days patient developed burning itching her hands and legs and was short of breath presented emergency department for further evaluate. upon arrival to emergency depart patient was saturating in 89-90 on room air, patient stated he does have a chronic shortness of breath and supposed to be seen statistical machine servicer, patient denied any oropharyngeal reaction to the medication no
[2021-03-14] MEDS: lisinopriL 5 MG TABLET PO (20:28)
[2021-03-14] MEDS: SIMVASTATIN 20 MG TABLET PO (20:28)
[2021-03-14] MEDS: ASPIRIN 81 MG ENTERIC TABLET PO (20:28)
[2021-03-14] MEDS: PANTOPRAZOLE 40 MG TABLET PO (20:28)
[2021-03-14] MEDS: GABAPENTIN 400 MG CAPSULE 800 MG PO (20:29)
[2021-03-15] VITALS (13 sets, daily range): BP systolic 108–116; BP diastolic 53–64; PULSE 55–72; RESP 16–20; TEMP 36.1–36.2; O2SAT 94–98
--- NOTE | 2021-03-15 | ECHO_ITS ---
Patient Info Name: Sunita Lopez Age: 70 years : 1950 Gender: Female Ht: 61 in Wt: 250 lbs BSA: 2.28 m2 HR: 52 bpm BP: 116 / 64 mmHg Technical Quality: Good Exam Date: 03/15/2021 9:59 AM Exam Location: [facility] Patient Status: Inpatient Admit Date: 03/14/2021 Staff Ordering Physician: Meghna Borja MD Mental Retardation Aide: aTye Patel, TC, RT Attending Provider: Elsy Herrera PA-C Referring Physician: Jonh PEDRO; Exam Type: CA echo doppler color flow Study Info Indications I50.9 - Heart failure, unspecified R06.02 - Shortness of breath Complete two-dimensional, color flow and Doppler transthoracic echocardiogram is performed. Strain analysis performed. Summary 1. Complete two-dimensional, color flow and Doppler transthoracic echocardiogram is performed. 2. Normal LV size and wall thickness, normal LV systolic function, ejection fraction about 70%. Indeterminate diastolic function. Borderline left atrial enlargement. Normal mitral valve structure, trace MR. Mild aortic valve sclerosis, no significant stenosis by Doppler. Trace TR, unable to assess RVSP due to inadequate TR jet. Sinus bradycardia. Left Ventricle Left ventricular chamber dimension is normal. Left ventricular systolic function is hyperdynamic, estimated at >70%. There is no increased left ventricular wall thickness. Left Atria Left atrial chamber dimension is normal. Right Atria Right atrial chamber dimension is normal. Aortic Valve There is mild aortic valve sclerosis. There is no aortic valve stenosis. Pulmonic Valve The pulmonic valve is not well visualized. There is trace pulmonic regurgitation. Mitral Valve The mitral valve has normal leaflets. There is trace mitral valve regurgitation. Tricuspid Valve The tricuspid valve leaflets are normal. There is trace tricuspid valve regurgitation. Pericardium/Pleural The pericardium appears normal. Inferior Vena Cava Dilated inferior vena cava with <50% collapse upon inspiration consistent with elevated right atrial pressure, 15 mmHg. Aorta The aortic root size at the sinus of Valsalva is not well visualized. Left Ventricular Outflow Tract Name Value Normal LVOT 2D LVOT Diameter 1.9 cm LVOT Doppler LVOT Peak Gradient 5 mmHg LVOT Mean Gradient 3 mmHg LVOT VTI 27 cm LVOT VTI/AV VTI Ratio 0.9 LVOT Stroke Volume 76 ml LVOT CO 4.3 l/min LVOT CI 1.9 l/min/m2 Mitral Valve Name Value Normal MV Doppler MV Peak Gradient 1 mmHg MV Mean Gradient 0 mmHg MV Area (Cont Eq VTI) 5.9 cm2 MV Regurgitat
[2021-03-15 05:39] LABS: Hematocrit 41.4 % (37.0-47.0); Hemoglobin 13.1 g/dL (12.0-15.0); Mean Corpuscular HGB Conc 31.6 g/dl (32-36); Mean Corpuscular Hemoglobin 31.5 pg (26-34); Mean Corpuscular Volume 99.5 fl (80-100); Mean Platelet Volume 9.6 fl (7.4-10.4); Platelet Count Result 183 k/mm3 (150-375); Red Blood Count 4.16 M/mm3 (4.2-5.4); Red Cell Distribution Width 13.7 % (11.5-14.5); White Blood Count 6.2 K/mm3 (4.5-10.0)
[2021-03-15 05:52] LABS: Alanine Aminotransferase 16 U/L (4-35); Albumin Level 3.6 g/dL (3.5-5.1); Alkaline Phosphatase 44 U/L (38-126); Anion Gap 4 mmol/L (8-16); Aspartate Amino Transferase 18 U/L (14-36); Bilirubin,Total 0.2 mg/dL (0.2-1.3); Blood Urea Nitrogen 26 mg/dL (7-17); Calcium 9.6 mg/dL (8.4-10.2); Carbon Dioxide 31 mmol/L (22-30); Chloride 105 mmol/L (98-107); Estimated CRCL calculation 45 ml/min; Estimated Glomerular Filt Rate 44; Glucose 81 mg/dL (65-105); Potassium 4.4 mmol/L (3.4-5.0); Sodium 140 mmol/L (137-145)
[2021-03-15] MEDS: HEPARIN SODIUM 5,000 UNITS/ML VIAL 5000 UNITS SUB-Q ×2 (08:41→20:20)
[2021-03-15] MEDS: ARTIFICIAL TEARS OPHTH SOLN 15 ML BOTTLE 1 DROP EACH EYE ×2 (08:41→20:20)
[2021-03-15] MEDS: predniSONE 2.5 MG TABLET BY MOUTH ×2 (08:41→17:26)
[2021-03-15] MEDS: LORATADINE 10 MG TABLET PO (08:42)
[2021-03-15] MEDS: GABAPENTIN 400 MG CAPSULE PO (08:42)
[2021-03-15] MEDS: FOLIC ACID 1 MG TABLET PO (08:42)
[2021-03-15] MEDS: sulfaSALAzine 500 MG TABLET 1000 MG PO ×2 (08:42→17:26)
[2021-03-15] MEDS: FUROSEMIDE 20 MG TABLET PO (08:42)
[2021-03-15] MEDS: CHOLECALCIFEROL 1,000 UNITS TABLET 1000 UNITS PO (08:42)
[2021-03-15] MEDS: METOPROLOL TARTRATE 50 MG TAB 100 MG PO ×2 (08:43→20:20)
[2021-03-15] MEDS: VITAMIN B COMPLEX/VIT C CAPSULE 1 EACH PO (08:45)
--- NOTE | 2021-03-15 12:30 | PM.IMPN ---
Progress Note: A&P Assessment and Plan (1) Acute respiratory failure with hypoxemia: Code(s): J96.01 - Acute respiratory failure with hypoxia Status: Acute Assessment and Plan: The patient is 70-year-old female with history of rheumatoid arthritis patient had been taking sulfasalazine for her pain control however the medication is unavailable and patient had been out the medication for few weeks. She was seen by her rheumatology, Dr Thakkar with severe pain in her hands and morning stiffness, who started the patient trial of leflunamide. After a few days of Leflunamide she developed burning itching her hands and legs and was shortness of breath and decided to come to the ER for further evaluation and possible medication reaction. Upon arrival to emergency depart patient was saturating in 89-90% on room air. Patient stated he does have a chronic shortness of breath and supposed to be seen dbas. Initial labs showed normal CBC with diff, normal Coag panel with elevated D-dimer at 0.68. Patient did not get a CTA Chest due to Contrast Dye Allergy and instead had a V/Q scan showed intermediate probability. CT Chest High Resolution showing Mosaic attenuation in the lungs, likely small airways disease. Enlarged central pulmonary, consistent with pulmonary arterial hypertension. No signs of infection or acute issue for her Hypoxia. I do not feel she has a PE and do not feel like further work up is needed at this time. Venous Dopplers will be ordered to rule out DVT causing elevated D-dimer. Continue Heparin for DVT prophylaxis Discussed the case with Dr. Jonh Evangelista who consulted on the patient who believes the patient may have chronic hypoxia after reviewing her Outpatient Sleep Study which showed she had nocturnal hypoxia. Jean Carlos started her on Symbicort without much improvement. Will start Duoneb tx Q6hrs and check Peak Flows before and after breathing treatments. Consider discharge on Combivent, per Dr. Borja See if this improves her hypoxia, but could have baseline hypoxia and require oxygen from her rheumatoid arthritis changes to her lungs overtime. Will need Home Oxygen Evaluation prior to discharge. PT/OT were consulted. Continue monitoring. (2) Rheumatoid arthritis without rheumatoid factor, unspecified site: Qualifiers: Rheumatoid arthritis location: unspecified site Qualified Code(s): M06.00 - Rheumatoid arthritis without rheumatoid factor, unspecified site Code(s): M06.00 - Rheumatoid arthritis without rheumatoid factor, unspecified site Status: Acute Assessment and Plan: I called the patients Animal Technician, Dr. Thakkar, who is aware of the patient being in the hospital. She agrees with sulfasalazine at this time and believes the patients symptoms of burning to her hands are feet are associated with her peripheral neuropathy and less likely a side effect of Leflunomide. Will have the patient follow up once discharged from the hospital for further evaluation and monitoring. (3) Allergic reaction to drug: Code(s): T78.40XA - Allergy, unspecified, initial encounter Status: Acute Assessment and Plan: No more symptoms at this time. (4) CKD (chronic kidney disease) stage 3, GFR 30-59 ml/min: Qualifiers: Chronic kidney disease stage 3 subtype: stage 3a (GFR 45-59) Qualified Code(s): N18.31 - Chronic kidney disease, stage 3a Code(s): N18.3 - Chronic kidney disease, stage 3 (moderate) Status: Acute Assessment and Plan: Creatinine stable at this time. D/c IV fluids (5) GERD without esophagitis: Code(s): K21.9 - Gastro-esophageal reflux disease without esophagitis Status: Acute Assessment and Plan: continue PPI Time Spent With Patient Time with patient: 25 - 35 minutes Subjective Date/time seen: 03/15/21 12:30 Interval history: Date of Service 03/15/21: patient reports having shortness of breat
[2021-03-15] MEDS: ALBUTEROL SULFATE NEB 2.5 MG/0.5 ML INH INHALATION ×2 (13:45→20:55)
[2021-03-15] MEDS: IPRATROPIUM BR 0.02% INH SOLN 0.5 MG/2.5 ML VIAL INHALATION ×2 (13:45→20:55)
--- NOTE | 2021-03-15 18:43 | PC.NURSE ---
Patient care observed by this RN for graduate nurse, Shonda Medel.
[2021-03-15] MEDS: GABAPENTIN 400 MG CAPSULE 800 MG PO (20:19)
[2021-03-15] MEDS: PANTOPRAZOLE 40 MG TABLET PO (20:19)
[2021-03-15] MEDS: ASPIRIN 81 MG ENTERIC TABLET PO (20:19)
[2021-03-15] MEDS: lisinopriL 5 MG TABLET PO (20:20)
[2021-03-15] MEDS: SIMVASTATIN 20 MG TABLET PO (20:21)
[2021-03-16] VITALS (19 sets, daily range): BP systolic 107–126; BP diastolic 51–62; PULSE 52–68; RESP 16–20; TEMP 35.9–36.3; O2SAT 92–100
[2021-03-16] MEDS: ALBUTEROL SULFATE NEB 2.5 MG/0.5 ML INH INHALATION ×4 (03:10→21:23)
[2021-03-16] MEDS: IPRATROPIUM BR 0.02% INH SOLN 0.5 MG/2.5 ML VIAL INHALATION ×4 (03:10→21:23)
[2021-03-16 06:27] LABS: Hematocrit 42.5 % (37.0-47.0); Hemoglobin 13.2 g/dL (12.0-15.0); Mean Corpuscular HGB Conc 31.1 g/dl (32-36); Mean Corpuscular Hemoglobin 31.2 pg (26-34); Mean Corpuscular Volume 100.5 fl (80-100); Mean Platelet Volume 10.6 fl (7.4-10.4); Platelet Count Result 124 k/mm3 (150-375); Red Blood Count 4.23 M/mm3 (4.2-5.4); Red Cell Distribution Width 13.8 % (11.5-14.5); White Blood Count 5.2 K/mm3 (4.5-10.0)
[2021-03-16 07:09] LABS: Alanine Aminotransferase 14 U/L (4-35); Albumin Level 3.5 g/dL (3.5-5.1); Alkaline Phosphatase 50 U/L (38-126); Anion Gap 7 mmol/L (8-16); Aspartate Amino Transferase 35 U/L (14-36); Bilirubin,Total 0.5 mg/dL (0.2-1.3); Blood Urea Nitrogen 25 mg/dL (7-17); Calcium 9.2 mg/dL (8.4-10.2); Carbon Dioxide 25 mmol/L (22-30); Chloride 106 mmol/L (98-107); Estimated CRCL calculation 53 ml/min; Estimated Glomerular Filt Rate 55; Glucose 76 mg/dL (65-105); Potassium 4.6 mmol/L (3.4-5.0); Sodium 138 mmol/L (137-145)
[2021-03-16] MEDS: CHOLECALCIFEROL 1,000 UNITS TABLET 1000 UNITS PO (09:16)
[2021-03-16] MEDS: FOLIC ACID 1 MG TABLET PO (09:16)
[2021-03-16] MEDS: FUROSEMIDE 20 MG TABLET PO (09:16)
[2021-03-16] MEDS: predniSONE 2.5 MG TABLET BY MOUTH ×2 (09:16→16:39)
[2021-03-16] MEDS: ARTIFICIAL TEARS OPHTH SOLN 15 ML BOTTLE 1 DROP EACH EYE ×2 (09:16→20:51)
[2021-03-16] MEDS: METOPROLOL TARTRATE 50 MG TAB 100 MG PO ×2 (09:17→20:50)
[2021-03-16] MEDS: HEPARIN SODIUM 5,000 UNITS/ML VIAL 5000 UNITS SUB-Q ×2 (09:17→20:51)
[2021-03-16] MEDS: GABAPENTIN 400 MG CAPSULE PO (09:17)
[2021-03-16] MEDS: sulfaSALAzine 500 MG TABLET 1000 MG PO ×2 (09:19→16:39)
[2021-03-16] MEDS: VITAMIN B COMPLEX/VIT C CAPSULE 1 EACH PO (09:19)
--- NOTE | 2021-03-16 12:08 | PM.IMPN ---
Progress Note: A&P Assessment and Plan (1) Acute respiratory failure with hypoxemia: Code(s): J96.01 - Acute respiratory failure with hypoxia Status: Acute Assessment and Plan: The patient is 70-year-old female with history of rheumatoid arthritis. She had been taking sulfasalazine for her pain control but recently the medication was unavailable and patient had been out the medication for a few weeks. She was seen by her luggage repairer, Dr Mcguire with severe pain in her hands and morning stiffness, and was started on trial of leflunamide. After a few days of Leflunamide, she developed burning itching to her hands and legs, shortness of breath and decided to come to the ER for further evaluation of possible medication reaction. Upon arrival to ED patient was saturating 89-90% on room air. Patient stated she does have a chronic shortness of breath and was scheduled to establish care with Dr Borja soon. Initial labs showed normal CBC with diff, normal Coag panel with elevated D-dimer at 0.68. CTA chest not performed due to Contrast Dye Allergy and instead had a she had V/Q scan showed intermediate probability for PE. CT Chest High Resolution showed Mosaic attenuation in the lungs, likely small airways disease. Enlarged central pulmonary, consistent with pulmonary arterial hypertension. No signs of infection or acute issue for her hypoxia. PE is not suspected and it is not felt that further work up is needed at this time. Venous Dopplers LE show no evidence of DVT. Continue Heparin for DVT prophylaxis. Appreciate pulmonology input. Suspect patient may have chronic hypoxia after reviewing her Outpatient Sleep Study which showed she had nocturnal hypoxia. Pulm started her on Symbicort without much improvement. Continue duoneb tx Q6hrs and check Peak Flows before and after breathing treatments. Consider discharge on Combivent, per Dr. Borja See if this improves her hypoxia, but could have baseline hypoxia and require oxygen from her rheumatoid arthritis changes to her lungs overtime. Plan for Home Oxygen Evaluation prior to discharge. Outpatient PFTs after discharge. Appreciate PT/OT evals. (2) Rheumatoid arthritis without rheumatoid factor, unspecified site: Qualifiers: Rheumatoid arthritis location: unspecified site Qualified Code(s): M06.00 - Rheumatoid arthritis without rheumatoid factor, unspecified site Code(s): M06.00 - Rheumatoid arthritis without rheumatoid factor, unspecified site Status: Chronic Assessment and Plan: Previous provider spoke with Dr. Mcguire for updates yesterday, who agreed with sulfasalazine at this time and believes the patients symptoms of burning to her hands are feet are associated with her peripheral neuropathy and less likely a side effect of Leflunomide. Will have the patient follow up once discharged from the hospital for further evaluation and monitoring. (3) Allergic reaction to drug: Code(s): T78.40XA - Allergy, unspecified, initial encounter Status: Acute Assessment and Plan: No more symptoms at this time. (4) CKD (chronic kidney disease) stage 3, GFR 30-59 ml/min: Qualifiers: Chronic kidney disease stage 3 subtype: stage 3a (GFR 45-59) Qualified Code(s): N18.31 - Chronic kidney disease, stage 3a Code(s): N18.3 - Chronic kidney disease, stage 3 (moderate) Status: Chronic Assessment and Plan: Creatinine stable at this time after IV hydration. IV fluids stopped. (5) GERD without esophagitis: Code(s): K21.9 - Gastro-esophageal reflux disease without esophagitis Status: Chronic Assessment and Plan: No acute issues, continue PPI. Subjective Date/time seen: 03/16/21 12:00 Interval hist
--- NOTE | 2021-03-16 14:50 | PCNSR ---
On 03/16/21, the student,Delicia Collins, provided care and completed [facility] documentation on this patient. I have reviewed the student's documentation and agree with the findings.
--- NOTE | 2021-03-16 16:43 | PC.NURSE ---
On 03/16/21, the student, ÁLVARO KEENAN RN , provided care and completed [facility] documentation on this patient. I have reviewed the student's documentation and agree with the findings.
[2021-03-16] MEDS: ASPIRIN 81 MG ENTERIC TABLET PO (20:51)
[2021-03-16] MEDS: SIMVASTATIN 20 MG TABLET PO (20:51)
[2021-03-16] MEDS: lisinopriL 5 MG TABLET PO (20:51)
[2021-03-16] MEDS: GABAPENTIN 400 MG CAPSULE 800 MG PO (20:51)
[2021-03-16] MEDS: PANTOPRAZOLE 40 MG TABLET PO (20:51)
[2021-03-17] VITALS (10 sets, daily range): BP systolic 107; BP diastolic 60; PULSE 57–65; RESP 18–20; TEMP 36.1; O2SAT 86–95
[2021-03-17] MEDS: IPRATROPIUM BR 0.02% INH SOLN 0.5 MG/2.5 ML VIAL INHALATION ×2 (01:53→09:25)
[2021-03-17] MEDS: ALBUTEROL SULFATE NEB 2.5 MG/0.5 ML INH INHALATION (01:53)
[2021-03-17 06:15] LABS: Hemoglobin 13.6 g/dL (12.0-15.0); Mean Corpuscular HGB Conc 30.9 g/dl (32-36); Mean Corpuscular Hemoglobin 30.8 pg (26-34); Mean Corpuscular Volume 99.8 fl (80-100); Mean Platelet Volume 10.2 fl (7.4-10.4); Platelet Count Result 160 k/mm3 (150-375); Red Blood Count 4.41 M/mm3 (4.2-5.4); Red Cell Distribution Width 13.8 % (11.5-14.5); White Blood Count 5.4 K/mm3 (4.5-10.0)
[2021-03-17 06:56] LABS: Alanine Aminotransferase 15 U/L (4-35); Albumin Level 3.7 g/dL (3.5-5.1); Alkaline Phosphatase 50 U/L (38-126); Anion Gap 6 mmol/L (8-16); Aspartate Amino Transferase 20 U/L (14-36); Bilirubin,Total 0.3 mg/dL (0.2-1.3); Blood Urea Nitrogen 25 mg/dL (7-17); Calcium 9.7 mg/dL (8.4-10.2); Carbon Dioxide 33 mmol/L (22-30); Chloride 100 mmol/L (98-107); Estimated CRCL calculation 53 ml/min; Estimated Glomerular Filt Rate 55; Glucose 64 mg/dL (65-105); Potassium 4.1 mmol/L (3.4-5.0); Sodium 139 mmol/L (137-145)
[2021-03-17] MEDS: ARTIFICIAL TEARS OPHTH SOLN 15 ML BOTTLE 1 DROP EACH EYE (08:34)
[2021-03-17] MEDS: METOPROLOL TARTRATE 50 MG TAB 100 MG PO (08:34)
[2021-03-17] MEDS: predniSONE 2.5 MG TABLET BY MOUTH (08:35)
[2021-03-17] MEDS: FUROSEMIDE 20 MG TABLET PO (08:35)
[2021-03-17] MEDS: sulfaSALAzine 500 MG TABLET 1000 MG PO (08:35)
[2021-03-17] MEDS: CHOLECALCIFEROL 1,000 UNITS TABLET 1000 UNITS PO (08:35)
[2021-03-17] MEDS: GABAPENTIN 400 MG CAPSULE PO (08:35)
[2021-03-17] MEDS: VITAMIN B COMPLEX/VIT C CAPSULE 1 EACH PO (08:35)
[2021-03-17] MEDS: FOLIC ACID 1 MG TABLET PO (08:35)
[2021-03-17] MEDS: HEPARIN SODIUM 5,000 UNITS/ML VIAL 5000 UNITS SUB-Q (08:36)
[2021-03-17] MEDS: LORATADINE 10 MG TABLET PO (08:36)
[2021-03-17] MEDS: ALBUTEROL SULFATE NEB 2.5 MG/0.5 ML INH (09:25)
--- NOTE | 2021-03-17 10:57 | HOMEO2EVAL ---
Evaluation was performed at [facility] Home Oxygen Evaluation RC: Home Oxygen (O2) Evaluation Start: 03/17/21 07:35 Freq: ONCE Status: Active Protocol: RPE Activity Type Activity Date Activity User E-Sign Co-Sign Detail Recorded Client Recorded Date Recorded By Document 03/17/21 10:20 [email or web address] [email or web address] 03/17/21 10:57 DJO Document 03/17/21 10:21 DJO [email or web address] 03/17/21 10:57 DJO Document 03/17/21 10:23 DJO [email or web address] 03/17/21 10:57 DJO Document 03/17/21 10:30 DJO [email or web address] 03/17/21 10:57 DJO 03/17/21 03/17/21 03/17/21 10:20 10:21 10:23 Home O2 Evaluation Test Phase Resting Resting Exercise Oxygen Delivery Room Air Nasal Cannula Nasal Cannula Oxygen Flow Rate (L/min) 1 1 Pulse Oximetry (90-100 %) 86 L 93 90 Home Oxygen Evaluation Comments PT REQUIRES 1 L AT REST AND WITH EXERTION UP TO BATHROOM AND IN BRYANT WITH WALKER Treatment Charges O2 Evaluation - Inpatient 03/17/21 10:30 Home O2 Evaluation Test Phase Resting Oxygen Delivery Nasal Cannula Oxygen Flow Rate (L/min) Pulse Oximetry (90-100 %) Home Oxygen Evaluation Comments Treatment Charges
--- NOTE | 2021-03-17 13:18 | PM.PNPUL ---
Progress Note: A&P Assessment and Plan (1) Acute respiratory failure with hypoxia: Code(s): J96.01 - Acute respiratory failure with hypoxia Status: Acute Assessment and Plan: She was admitted with low saturation, shortness of breath, requiring less O2, 1 L/min for rest and exertion. She should wear 2 L/min with sleep. She has an adverse reaction to leflunomide which is why she was admitted, and this may be part of the whole picture. She does not have obesity hypoventilation, normal pCO2. Has asthma, atleectasis, and needs O2. THis will be re-evaluated At admission required 3 L/min. High resolution chest CT shows mosaic attenuation which is consistent with asthma, as well as atelectasis. She is having an adverse drug reaction to leflunomide with neuropathy in hands, hypoxemia and coughing and this can be seen. She has no history of asthma, does have some wheezing at times with exertion, has not been on inhaled medications. She has no smoking history, no second hand smoke exposure or occupational exposure. A sleep study showed nocturnal hypoxemia in October, a prior study showed KEO; she has not been treated for nocturnal hypoxemia yet. She probably has combination of KEO and nocturnal hypoxemia independent of the KEO. She has a history of pulmonary emboli in 2010 several months after long plane ride from [place]. She does not have eosinophilia. She has rheumatoid arthritis, may have drug-induced lung disease from the leflunomide. Leflunomide can cause pneumonitis, infection and rheumatoid nodules, with typical symptoms of fever, cough, and dyspnea. She does not have the typical findings on high resolution computed tomography (HRCT) seen in drug induced lung disease with leflunomide : ground glass opacities, bilateral reticular opacities, and honeycombing, or areas of consolidation. Most of the drugs used to treat rheumatoid arthritis (RA) have been reported to cause pneumonitis, including methotrexate, leflunomide, biologic agents, sulfasalazine. She was on sulfasalazine until 3 weeks ago, had increase in symptoms after starting leflunomide - peripheral neuropathy, cough, shortness of breath. PLAN: * PFTs after discharge will be needed to further evaluate. * Echo: 03/15/2021 Normal LV size and wall thickness, normal LV systolic function, ejection fraction about 70%. Indeterminate diastolic function. Borderline left atrial enlargement. Normal mitral valve structure, trace MR. Mild aortic valve sclerosis, no significant stenosis by Doppler. Trace TR, unable to assess RVSP due to inadequate TR jet. Sinus bradycardia. COULD NOT ASSESS FOR PULMONARY HYPERTENSION * O2 1 L with rest and exertion, 2 L/min with sleepo * Continue treatment for asthma with Symbicort and albuterol PRNi * VQ was indeterminate, and this might be due to asthma. The VQ is only helpful with normal lungs. The air trapping with asthma makes using this for excluding chronic thromboembolic disease not as accurate. * Cont incentive spirometer and bronchodilator as well as increase mobilization. * Lower extremity dopplers negative 03/15/21 ordered as she had PE in 2010, provoked by long plane ride. (2) Shortness of breath: Code(s): R06.02 - Shortness of breath Status: Acute Assessment and Plan: Shortness of breath may be multifactorial; improved; was increasing for a month, worse with exertion; she has rheumatoid arthritis since age 17, has been on multiple medications to treat this, may have drug induced lung disease due to leflunomide, asthma, deconditioning with morbid obesity; possible chronic thromboembolic disease. (3) Nocturnal hypoxemia: Onset Date: ~10/2020 Code(s): G47.34 - Idiopathic sleep related nonobstructive alveolar hypoventilation Status: Acute Assessment and Plan: Has KEO
--- NOTE | 2021-03-17 13:31 | PM.DS ---
DS: Admitting Diagnosis Admitting Diagnosis Admitting Diagnosis: SOB DS: Discharge Diagnosis Discharge Diagnosis (1) Acute respiratory failure with hypoxemia: Code(s): J96.01 - Acute respiratory failure with hypoxia Status: Acute Assessment and Plan: The patient is 70-year-old female with history of rheumatoid arthritis. She had been taking sulfasalazine for her pain control but recently the medication was unavailable and patient had been out the medication for a few weeks. She was seen by her diabetes education coordinator, Dr Mcguire with severe pain in her hands and morning stiffness, and was started on trial of leflunamide. After a few days of Leflunamide, she developed burning itching to her hands and legs, shortness of breath and decided to come to the ER for further evaluation of possible medication reaction. Upon arrival to ED patient was saturating 89-90% on room air. Patient stated she does have a chronic shortness of breath and was scheduled to establish care with Dr Jonh allen. Initial labs showed normal CBC with diff, normal Coag panel with elevated D-dimer at 0.68. CTA chest not performed due to Contrast Dye Allergy and instead had a she had V/Q scan showed intermediate probability for PE. CT Chest High Resolution showed Mosaic attenuation in the lungs, likely small airways disease. Enlarged central pulmonary, consistent with pulmonary arterial hypertension. No signs of infection or acute issue for her hypoxia. PE is not suspected and it is not felt that further work up is needed at this time. Venous Dopplers LE show no evidence of DVT. Pulmonology was consulted who recommended starting her on Symbicort and Duoneb treatments with Peak Flows while here. She did Not have much improvement of her breathing with this treatment. She had a home oxygen evaluation which showed she needs 1 L of oxygen at rest and with exertion. Evaluated the patient today and talking to pulmonology we will continue her Symbicort at discharge as well as a rescue albuterol inhaler. Suspect patient may have chronic hypoxia after reviewing her Outpatient Sleep Study which showed she had nocturnal hypoxia. Her chronic hypoxia could be related to asthma verses progression of RA causing changes to her lungs. at this time the patient is feeling well without any concerns or issues at this time. She will be discharged on oxygen. To purchase a home Oximeter. Follow-up with her primary care provider and pet sitting within 1-2 weeks. Patient understands and agrees the plan all questions answered. (2) Rheumatoid arthritis without rheumatoid factor, unspecified site: Qualifiers: Rheumatoid arthritis location: unspecified site Qualified Code(s): M06.00 - Rheumatoid arthritis without rheumatoid factor, unspecified site Code(s): M06.00 - Rheumatoid arthritis without rheumatoid factor, unspecified site Status: Chronic Assessment and Plan: I spoke with Dr. Mcguire who agreed with sulfasalazine at this time and believes the patients symptoms of burning to her hands are feet are associated with her peripheral neuropathy and less likely a side effect of Leflunomide. Will have the patient follow up once discharged from the hospital for further evaluation and monitoring. (3) Allergic reaction to drug: Code(s): T78.40XA - Allergy, unspecified, initial encounter Status: Acute Assessment and Plan: No more symptoms at this time. (4) CKD (chronic kidney disease) stage 3, GFR 30-59 ml/min: Qualifiers: Chronic kidney disease stage 3 subtype: stage 3a (GFR 45-59) Qualified Code(s): N18.31 - Chronic kidney disease, stage 3a Code(s): N18.3 - Chronic kidney disease, stage 3 (moderate) Status: Chronic Assessment and Plan: Creatinine stable at this time after IV hydratio
--- NOTE | 2021-03-17 14:34 | PCRCNOTE ---
Home O2 eval done, pt set up with [facility]. Transport tank in room and ready for D/c
== END 2021-03-17 14:51 | disposition home or self-care (01) | DRG 73 ==
LOC: ANHED 06:37 → ANH2MED 07:21
PROVIDERS: Family Medicine; Internal Medicine Critical Care Medicine; Admitting Provider Internal Medicine; Emergency Provider Emergency Medicine; PCP Family Medicine; Visit Provider Physician Assistant
DX: G62.9 Polyneuropathy, unspecified (principal); J96.01 Acute respiratory failure with hypoxia; I13.0 Hypertensive heart and chronic kidney disease with heart failure and stage 1 through stage 4 chronic kidney disease, or unspecified chronic kidney disease; I50.32 Chronic diastolic (congestive) heart failure; Z68.42 Body mass index [BMI] 45.0-49.9, adult; L29.8 Other pruritus; T39.4X5A Adverse effect of antirheumatics, not elsewhere classified, initial encounter; M19.90 Unspecified osteoarthritis, unspecified site; N18.30 Chronic kidney disease, stage 3 unspecified; K21.9 Gastro-esophageal reflux disease without esophagitis; E78.2 Mixed hyperlipidemia; M06.9 Rheumatoid arthritis, unspecified; L71.9 Rosacea, unspecified; R91.8 Other nonspecific abnormal finding of lung field; E21.3 Hyperparathyroidism, unspecified; M79.7 Fibromyalgia; G47.33 Obstructive sleep apnea (adult) (pediatric); E66.01 Morbid (severe) obesity due to excess calories; Z86.711 Personal history of pulmonary embolism
CPT/HCPCS: 36415; 36600; 71045; 71250; 78580; 80048; 80053; 82375; 82805; 83050; 83735; 83880; 84484; 85025; 85027; 85380; 85610; 85730; 93005; 93306; 93970; 94618; 94640; 96372; 96374; 96375; 97161; 97165; 97535; 99285; A9270; A9540; G0378; J1200; J1644; J2930

== ENCOUNTER 2021-05-03 09:03 | Outpatient (CLI) | payer MEDICARE, SELFPAY ==
[2021-05-03 09:30] VITALS: PULSE 73; O2SAT 91
[2021-05-03 09:33] VITALS: O2SAT 84
[2021-05-03 09:34] VITALS: O2SAT 86
[2021-05-03 09:35] VITALS: O2SAT 87
[2021-05-03 09:36] VITALS: PULSE 93; O2SAT 90
[2021-05-03 09:45] VITALS: PULSE 75; O2SAT 91
--- NOTE | 2021-05-03 10:49 | HOMEO2EVAL ---
Evaluation was performed at [facility] Home Oxygen Evaluation RC: Home Oxygen (O2) Evaluation Start: 05/03/21 10:42 Freq: Status: Active Protocol: RPE Activity Type Activity Date Activity User E-Sign Co-Sign Detail Recorded Client Recorded Date Recorded By Document 05/03/21 09:30 MATT [email or web address] 05/03/21 10:46 MATT Document 05/03/21 09:33 MATT [email or web address] 05/03/21 10:46 MATT Document 05/03/21 09:34 MATT [email or web address] 05/03/21 10:46 MATT Document 05/03/21 09:35 MATT [email or web address] 05/03/21 10:46 MATT Document 05/03/21 09:36 MATT [email or web address] 05/03/21 10:46 MATT Document 05/03/21 09:45 MATT [email or web address] 05/03/21 10:46 MATT 05/03/21 05/03/21 05/03/21 09:30 09:33 09:34 Home O2 Evaluation Test Phase Resting Exercise Exercise Oxygen Delivery Room Air Room Air Nasal Cannula Oxygen Flow Rate (L/min) 1 Pulse Oximetry (90-100 %) 91 84 L 86 L Pulse Rate (60-100 beats/min) 73 Activity Tolerance Ambulation Distance (feet) Home Oxygen Evaluation Comments Treatment Charges O2 Evaluation - Outpatient 05/03/21 05/03/21 05/03/21 09:35 09:36 09:45 Home O2 Evaluation Test Phase Exercise Exercise Resting Oxygen Delivery Nasal Cannula Nasal Cannula Room Air Oxygen Flow Rate (L/min) 2 3 Pulse Oximetry (90-100 %) 87 L 90 91 Pulse Rate (60-100 beats/min) 93 75 Activity Tolerance Fair Ambulation Distance (feet) 350 Home Oxygen Evaluation Comments PT REQUIRES 3 L WITH EXERTION Treatment Charges
--- NOTE | 2021-05-03 10:49 | PCRCNOTE ---
PT FAILED 6MWT, DESATS TO 85 ON 1L WITH ACTIVITY(HOME SETTING) INCREASED TO 3L WITH ACTIVITY. HOME O2 EVAL CHARTED AND FAXED TO OFFICE STAFF
--- NOTE | 2021-05-03 12:22 | P.PCNPFT_ITS ---
PFT Procedure Performed PFT Procedure Performed Spirometry with Pre/Post Bronchodilator Plethysmography (Lung Vol) Diffusing Cap (DLCO) Flow Vol Loop PFT Interpretation This is a pulmonary function test with pre and post-bronchodilator spirometry, plethysmography and diffusing capacity. The test was performed and results interpreted in accordance with the 2019 and 2005 ATS/ERS Task Force guidelines respectively using the Global Lung Function Initiative-2012 reference equations. Patient demonstrated good effort and cooperation. Reproducibility criteria were met. The quality of the pre bronchodilator spirometry maneuver was Grade A and post bronchodilator spirometry maneuver was Grade A. Findings: Spirometry: the contour of the inspiratory and expiratory flow tracing are normal. The pre bronchodilator FVC is 1.75 L, 69% predicted. The pre bronchodilator FEV1 is 1.30 L, 66% predicted. The FEV1: FVC ratio 74%. The post bronchodilator FVC is 1.86 L, representing a 6% increase. The post bronchodilator FEV1 is 1.40 L, representing 8% increase. Plethysmography: The total lung capacity is 3.34 L, 73% predicted. The functional residual capacity is 1.84 L, 70% predicted. The residual volume is 1.59 L, 77% predicted. Diffusing capacity: The absolute diffusion capacity is 13.3, 69% predicted. T he diffusing capacity corrected for alveolar volume is 4.33, 98% predicted. Impression: There is a moderate restrictive ventilatory abnormality. The spirometry is normal without evidence of an obstructive abnormality. There is no significant improvement after inhaling a single dose of albuterol. The Diffusing capacity is normal. There are no prior studies for comparison
== END 2021-05-03 09:04 | disposition home or self-care (01) ==
PROVIDERS: PCP Family Medicine; Visit Provider Internal Medicine Critical Care Medicine
DX: J96.11 Chronic respiratory failure with hypoxia (principal); J45.909 Unspecified asthma, uncomplicated
CPT/HCPCS: 94060; 94618; 94726; 94729

== ENCOUNTER 2021-09-23 08:00 | Outpatient (CLI) | payer MEDICARE, SELFPAY ==
--- NOTE | 2021-09-28 12:31 | WPDSLEEPSTUD ---
Sleep Study Date of Study: 09/23/21 Ordering Provider: Meghna Borja MD Interpreting Physician: Meghna Borja MD Sleep Study Type: Split Polysomnogram Height: 1.57 m Weight: 119 kg Body Mass Index: 47.9 Neck Circumference (inches): 13 [place]: 14 Reason for Sleep Study * Basic sleep study 10/08/2020 with nocturnal hypoxemia to 77% and 53% of the study with saturation below 88%. O2 was added. She has chronic hypoxemic respiratory failure on oxygen and hypersomnolence. She presents for evaluation of sleep disordered breathing. 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 She wakes up with a racing heartbeat. She will sit up and take deep breaths until her heart rate goes back to normal. She previously was tested for sleep issues but did not have insurance to cover the machine so she went untreated. She has had these problems for several years. Sometimes she wakes up several times at night and at other time she only wakes up once. She does not have good quality sleep. She wakes up feeling exhausted. She has difficulty falling asleep, waking up several times in the night and feeling sleepy during the day. There is a family history with her mother having sleep apnea but refusing to be treated. She occasionally snores at night. It is never loud enough that others complain about it. She frequently awakens at night with heartburn, belching or coughing. She occasionally awakens from sleep feeling short of breath. She rarely has trouble sleep with a cold. She frequently gasp for breath during the night. She rarely has breathing problems at night observed by others. She does not sweat excessively at night. She occasionally notices her heart pounding or beating irregularly at night, occasionally falls asleep during the day, occasionally involuntarily but never while driving. She does not fall asleep during physical effort. She does not have loss of muscle tone with strong emotion. She has not have daytime difficulties due to excessive sleepiness. She does not feel paralyzed on waking or falling asleep nor does she have vivid dreamlike scenes upon awakening or falling asleep. She is never afraid to go to sleep. she does not have nightmares. She does not remember her dreams. She rarely has racing thoughts. She rarely feels sad, depressed or anxious. She rarely has muscular tension. She does not notice parts of her body jerking. She rarely kicks at night. She occasionally has crawling and aching feelings in her legs at night. She rarely has leg pain during the night. She frequently wakes up with morning jaw pain. She frequently grinds her teeth at night. She occasionally has bothered by pain during the day. She occasionally is awakened by pain during the night. She frequently wakes up feeling stiff in the morning, rarely with sore or achy muscles, rarely with pain in the neck and spine. She has fainting spells when she stands up too quickly. She has memory problems, fatigue, and palpitations. 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 Normal bedtime is midnight, taking a few hours to fall asleep, waking 2 or 3 times at night. These awakenings vary in length. They may happen soon after falling asleep or in the middle of the night. She will sit up, take deep breaths and try to get back to sleep. She wakes in the morning between 9 and 10:00 a.m.. On weekends she goes to bed at midnight, may stay in bed until 10 or 11:00 a.m.. She does not nap intentionally. She sometimes naps incidentally. A short nap is not refreshing. She is usually drowsy in the morning for 1 hour or longer. She feels better in the morning compared to other times of day. SHe has problems with memory, mood and concentration. Habits: Never smoked tobacco. Caffeine 1 cup per day. No alcohol or recreational drugs. FORMERLY [facility], [facility] Past Medical History Medical History (Upda
[2021-09-28 13:09] VITALS: BMI 47.9
== END 2021-09-24 07:11 | disposition home or self-care (01) ==
LOC: ANHCSM 08:05
PROVIDERS: PCP Family Medicine; Visit Provider Internal Medicine Critical Care Medicine
DX: G47.33 Obstructive sleep apnea (adult) (pediatric) (principal)
CPT/HCPCS: 95811

== ENCOUNTER 2023-01-08 13:44 | Outpatient (CLI) | payer MEDICARE, SELFPAY ==
--- NOTE | ~2023-01-08 | XR_ITS ---
AP and oblique views of the right ribs, and PA and lateral chest radiographs COMPARISON: 03/13/2021 Clinical History: Pain Findings: No rib fracture is seen. Osseous alignment is anatomic. There is linear scarring at the rig ht midlung. Stable calcified left upper lobe granuloma. Lungs are otherwise clear. Cardiomediastinal contour is within normal limits. Soft tissues are unremarkable. Impression: No rib fracture is seen. No significant pulmonary abnormality. Reviewed, dictated and finalized at location . Impression: No rib fracture is seen. No significant pulmonary abnormality.
== END 2023-01-08 13:45 ==
PROVIDERS: PCP Family Medicine; Visit Provider Family Medicine
DX: R07.81 Pleurodynia (principal)
CPT/HCPCS: 71046; 71100

== ENCOUNTER 2023-05-08 09:53 | Outpatient (CLI) | payer MEDICARE, SELFPAY ==
[2023-05-08 11:21] LABS: Hematocrit 39.5 % (37.0-47.0); Hemoglobin 12.7 g/dL (12.0-15.0); Mean Corpuscular HGB Conc 32.2 g/dl (32-36); Mean Corpuscular Volume 99.5 fl (80-100); Mean Platelet Volume 9.9 fl (7.4-10.4); Platelet Count Result 245 k/mm3 (150-375); Red Blood Count 3.97 M/mm3 (4.2-5.4); Red Cell Distribution Width 12.5 % (11.5-14.5); White Blood Count 6.6 K/mm3 (4.5-10.0)
[2023-05-08 11:35] LABS: Appearance Urine Clear (Clear); Bacteria Urine None Seen /hpf; Bilirubin Urine Negative (Negative); Blood Urine Negative (Negative); Color Urine Dark Yellow (Yellow); Glucose Urine UA Negative (Negative); Hyaline Casts Urine Present /lpf; Ketones Urine Negative (Negative); Leukocyte Esterase Ur 1+ LEU/UL (Negative); Nitrate Urine Negative (Negative); Protein Urine Negative (Negative); RBC Urine 0-2 /hpf (0-2); Specific Grav Ur 1.014 (1.001-1.035); Squamous Epithelial Cell Urine None seen /hpf (Few); Urobilinogen Urine 0.2 mg/dL (<2.0)
[2023-05-08 11:36] LABS: Add Urine Microscopic? YES
[2023-05-08 11:46] LABS: Alanine Aminotransferase 21 U/L (6-35); Albumin Level 4.3 g/dL (3.5-5.1); Alkaline Phosphatase 42 U/L (38-126); Anion Gap 17 mmol/L (8-16); Aspartate Amino Transferase 31 U/L (14-36); Bilirubin,Total 0.5 mg/dL (0.2-1.3); Blood Urea Nitrogen 16 mg/dL (7-17); Carbon Dioxide 21 mmol/L (22-30); Chloride 98 mmol/L (98-107); Estimated Glomerular Filt Rate 54; Glucose 85 mg/dL (65-110); Potassium 4.7 mmol/L (3.4-5.0); Sodium 136 mmol/L (137-145)
[2023-05-08 12:32] LABS: Erythrocyte Sedimentation Rate 27 mm/hr (0-20)
== END 2023-05-08 09:54 | disposition home or self-care (01) ==
PROVIDERS: PCP Family Medicine; Visit Provider Internal Medicine
DX: M06.00 Rheumatoid arthritis without rheumatoid factor, unspecified site (principal); M19.90 Unspecified osteoarthritis, unspecified site
CPT/HCPCS: 36415; 80053; 81001; 85027; 85652; 86140; 87086

== ENCOUNTER 2023-05-30 11:37 | Outpatient (CLI) | payer MEDICARE, SELFPAY ==
[2023-05-30 18:04] LABS: Hepatitis B Surface Antigen Negative (Negative)
[2023-06-04 12:17] LABS: NIL 0.01 IU/mL; Quantiferon TB Plus, 1T NEGATIVE (NEGATIVE); TB1-NIL 0.01 IU/mL; TB2-NIL 0.01 IU/mL
== END 2023-05-30 11:38 | disposition home or self-care (01) ==
PROVIDERS: PCP Family Medicine; Visit Provider Internal Medicine Hematology & Oncology
DX: M06.00 Rheumatoid arthritis without rheumatoid factor, unspecified site (principal)
CPT/HCPCS: 36415; 86480; 87340

== ENCOUNTER 2023-08-13 11:33 | Outpatient (CLI) | payer MEDICARE, SELFPAY ==
[2023-08-13 18:52] LABS: Basophils Absolute Auto 0.1 K/mm3 (0.0-0.1); Basophils Percent Auto 1.2 % (0.2-1.2); Eosinophils Absolute Auto 0.2 K/mm3 (0-0.3); Eosinophils Percent Auto 2.8 % (0-4.4); Hematocrit 45.5 % (37.0-47.0); Hemoglobin 14.3 g/dL (12.0-15.0); Immature Granulocyte Absolute 0.01 K/mm3 (0.00-0.031); Immature Granulocyte Percent A 0.1 % (0-0.5); Lymphocytes Absolute Auto 1.98 K/mm3 (0.9-3.2); Lymphocytes Percent Auto 29.2 % (18.3-44.2); Mean Corpuscular HGB Conc 31.4 g/dl (32-36); Mean Corpuscular Hemoglobin 30.5 pg (26-34); Monocytes Absolute Auto 0.7 K/mm3 (0.1-0.6); Monocytes Percent Auto 9.7 % (2.6-8.5); Neutrophils Absolute Auto 3.9 K/mm3 (1.3-6.7); Platelet Count Result 279 k/mm3 (150-375); Red Blood Count 4.69 M/mm3 (4.2-5.4); Red Cell Distribution Width 13.1 % (11.5-14.5); White Blood Count 6.8 K/mm3 (4.5-10.0)
[2023-08-13 20:02] LABS: Alanine Aminotransferase 22 U/L (6-35); Albumin Level 4.6 g/dL (3.5-5.1); Alkaline Phosphatase 53 U/L (38-126); Anion Gap 7 mmol/L (8-16); Aspartate Amino Transferase 36 U/L (14-36); Bilirubin,Total 0.4 mg/dL (0.2-1.3); Blood Urea Nitrogen 17 mg/dL (7-17); Calcium 10.3 mg/dL (8.4-10.2); Carbon Dioxide 29 mmol/L (22-30); Chloride 101 mmol/L (98-107); Cholesterol 210 mg/dL (0-200); Estimated Glomerular Filt Rate 54; Glucose 86 mg/dL (65-110); HDL Direct 71 mg/dL; Potassium 4.7 mmol/L (3.4-5.0); Sodium 137 mmol/L (137-145); Triglycerides 164 mg/dL (<150)
[2023-08-13 20:10] LABS: LDL Cholesterol Direct 88 mg/dL
[2023-08-13 21:20] LABS: Hemoglobin A1C 5.2 % (<5.7)
== END 2023-08-13 11:34 | disposition home or self-care (01) ==
LOC: ANHGOSHLAB 11:35
PROVIDERS: PCP Family Medicine; Visit Provider Nurse Practitioner Family
DX: N18.30 Chronic kidney disease, stage 3 unspecified (principal); I50.32 Chronic diastolic (congestive) heart failure; R73.03 Prediabetes; E21.3 Hyperparathyroidism, unspecified; Z13.220 Encounter for screening for lipoid disorders; Z13.29 Encounter for screening for other suspected endocrine disorder
CPT/HCPCS: 36415; 80053; 80061; 83036; 84443; 85025

== ENCOUNTER 2023-08-17 11:08 | Outpatient (CLI) | payer MEDICARE, SELFPAY ==
[2023-08-17 12:39] LABS: Hematocrit 42.7 % (37.0-47.0); Hemoglobin 13.7 g/dL (12.0-15.0); Mean Corpuscular HGB Conc 32.1 g/dl (32-36); Mean Corpuscular Hemoglobin 30.4 pg (26-34); Mean Corpuscular Volume 94.7 fl (80-100); Mean Platelet Volume 9.9 fl (7.4-10.4); Platelet Count Result 252 k/mm3 (150-375); Red Blood Count 4.51 M/mm3 (4.2-5.4); White Blood Count 5.8 K/mm3 (4.5-10.0)
[2023-08-17 12:50] LABS: Alanine Aminotransferase 19 U/L (6-35); Albumin Level 4.6 g/dL (3.5-5.1); Alkaline Phosphatase 58 U/L (38-126); Anion Gap 6 mmol/L (8-16); Aspartate Amino Transferase 26 U/L (14-36); Bilirubin,Total 0.3 mg/dL (0.2-1.3); Blood Urea Nitrogen 17 mg/dL (7-17); CRP < 0.5 mg/dL (<1.0); Carbon Dioxide 28 mmol/L (22-30); Chloride 103 mmol/L (98-107); Estimated Glomerular Filt Rate 49; Glucose 93 mg/dL (65-110); Potassium 4.3 mmol/L (3.4-5.0); Sodium 137 mmol/L (137-145)
[2023-08-17 13:27] LABS: Erythrocyte Sedimentation Rate 14 mm/hr (0-20)
[2023-08-17 13:38] LABS: Creatinine 24 Hour Urine 0.7 gm/24 (0.8-1.8); Total Volume 24 Hour Urine 2600 ml
[2023-08-23 21:59] LABS: Total Volume 2600 mL; Urine Calcium 4.8 mg/dL
== END 2023-08-17 11:09 | disposition home or self-care (01) ==
PROVIDERS: PCP Family Medicine; Referring Provider Internal Medicine Endocrinology, Diabetes & Metabolism; Visit Provider Internal Medicine
DX: M06.00 Rheumatoid arthritis without rheumatoid factor, unspecified site (principal); E21.3 Hyperparathyroidism, unspecified; N18.30 Chronic kidney disease, stage 3 unspecified; M85.80 Other specified disorders of bone density and structure, unspecified site; R79.89 Other specified abnormal findings of blood chemistry
CPT/HCPCS: 36415; 80053; 81050; 82340; 82570; 85027; 85652; 86140

== ENCOUNTER 2023-10-25 12:39 | Outpatient (CLI) | payer MEDICARE, OTHER, SELFPAY ==
--- NOTE | ~2023-10-25 | DEXA_ITS ---
Bone Density Report Name: NICKOLAS QUINTANA Age: 73 Sex: Female Ethnicity: White Date of : 1950 Indication: osteopenia; height loss; history of glucocorticoids; asthma or emphysema; rheumatoid arthritis; secondary osteoporosis; postmenopausal Referring Provider: CITLALI HUA Study: Bone densitometry was performed. Exam Date: October 25, 2023 Accession number: [id number] Bone Density: Region BMD T-score Z-score Classification AP Spine (L1, L3, L4) 0.990 -0.6 1.8 Normal Femoral Neck (Left) 0.612 -2.1 -0.1 Osteopenia Total Hip (Left) 0.931 -0.1 1.7 Normal Femoral Neck (Right) 0.606 -2.2 -0.1 Osteopenia Total Hip (Right) 0.865 -0.6 1.1 Normal Total Hip Mean 0.898 -0.4 1.4 Normal World Health Organization criteria for BMD impression classify patients as: Normal (T-score at or above -1.0), Osteopenia (T-score between -1.0 and -2.5), or Osteoporosis (T-score at or below -2.5). 10-year Fracture Risk(1): Major Osteoporotic Fracture 22% Hip Fracture 6.4% Reported Risk Factors: [place] (), Neck BMD=0.606, BMI=49.3, glucocorticoids, rheumatoid arthritis, secondary osteoporosis (1) FRAX(R) Version 3.08. Fracture probability calculated for an untreated patient. Fracture probability may be lower if the patient has received treatment. Previous Exams: Region Exam Age BMD T-score BMD Change BMD Change Date g/cm2 vs Baseline vs Previous AP Spine(L1, L3, L4) 10/25/2023 73 0.990 -0.6 0.027* 0.066* 08/24/2020 70 0.924 -1.2 -0.038* -0.032* 04/11/2018 67 0.956 -0.9 -0.007 0.032* 10/09/2014 64 0.923 -1.2 -0.039* -0.039* 04/10/2011 60 0.963 -0.8 0.001 0.001 05/04/2006 55 0.962 -0.8 Total Hip(Left) 10/25/2023 73 0.931 -0.1 -0.091* -0.010 08/24/2020 70 0.940 0.0 -0.081* -0.027 04/11/2018 67 0.967 0.2 -0.054* 0.001 10/09/2014 64 0.966 0.2 -0.055* -0.012 04/10/2011 60 0.978 0.3 -0.043* -0.043* 05/04/2006 55 1.021 0.7 Total Hip(Right) 10/25/2023 73 0.865 -0.6 -0.113* -0.027* 08/24/2020 70 0.892 -0.4 -0.086* -0.018 04/11/2018 67 0.909 -0.3 -0.068* -0.025 10/09/2014 64 0.934 -0.1 -0.044* -0.010 04/10/2011 60 0.944 0.0 -0.034* -0.034* 05/04/2006 55 0.978 0.3 *Denotes significance at 95% confidence level, C for AP Spine = 0.022 g
== END 2023-10-25 12:40 ==
PROVIDERS: PCP Internal Medicine Endocrinology, Diabetes & Metabolism; Visit Provider Internal Medicine Endocrinology, Diabetes & Metabolism
DX: Z78.0 Asymptomatic menopausal state (principal); M85.89 Other specified disorders of bone density and structure, multiple sites
CPT/HCPCS: 77080

== ENCOUNTER 2023-11-22 02:17 | Day surgery (SDC) | payer MEDICARE, OTHER, SELFPAY ==
[2023-11-14 15:29] VITALS: BMI 50.3
--- NOTE | 2023-11-20 09:37 | SUR.PREOP ---
Patient called regarding upcoming procedure. Reviewed preop instructions, appointment times, and procedure prep.
[2023-11-22 10:11] VITALS: BP 136/64; PULSE 67; RESP 18; TEMP 36.1; O2SAT 92
--- NOTE | 2023-11-22 10:27 | WPDANESEPPF ---
Anes - Initial Pre Proc Eval Procedure: Operation Date: 11/22/23 11:30 Proposed Procedures p Colonoscopy - Germain Rodriguez MD Date/Time: 11/22/23 10:27 Surgeon: Germain Rodriguez MD Pre Op Diagnosis: History colon polyps Patient Data Age: 73 Gender: F Height: 1.5 m Weight: 114.3 kg Last Vital Signs Temp 97 F L 11/22/23 10:11 Pulse 67 11/22/23 10:11 Resp 18 11/22/23 10:11 BP 136/64 11/22/23 10:11 Pulse Ox 92 11/22/23 10:11 O2 Del Method Nasal Cannula 11/22/23 10:11 O2 Flow Rate 2 11/22/23 10:11 Allergies Allergy/AdvReac Type Severity Reaction Status Date / Time fish derived Allergy Severe itchy mouth Verified 11/22/23 10:09 Iodinated Contrast Media Allergy Severe Itching Verified 11/22/23 10:09 leah Allergy Severe itchy mouth Verified 11/22/23 10:09 shrimp Allergy Severe itchy mouth Verified 11/22/23 10:09 adhesive tape Allergy Intermediate Blister Verified 11/22/23 10:09 Home Medications Medication Instructions Recorded Confirmed Type B-complex with vitamin C (Super B 1 tablet PO DAILY 05/25/20 11/14/23 History Complex-Vitamin C tablet) aspirin 81 mg tablet,delayed 81 mg PO HS 05/25/20 11/14/23 History release (Adult Low Dose Aspirin) cetirizine 10 mg tablet (Allergy 10 mg PO DAILY PRN Allergy Symptoms 05/25/20 11/14/23 History Relief (cetirizine)) artificial tears solution eye drops 1 drp ophthalmic (eye) BID 03/13/21 11/14/23 History acetaminophen 500 mg tablet 500 mg PO Q6H PRN pain 12/14/21 11/22/23 History (Tylenol Extra Strength) albuterol sulfate 90 mcg/actuation 1 - 2 puff inhalation Q4-6H PRN 11/13/22 11/14/23 Rx aerosol inhaler shortness of breath or wheezing #8.5 grams furosemide 20 mg tablet See Rx Instructions PO DAILY #40 11/15/22 11/14/23 Rx tabs cholecalciferol (vitamin D3) 25 50 mcg PO DAILY 01/02/23 11/14/23 History mcg (1,000 unit) tablet omeprazole 20 mg capsule,delayed 20 mg PO DAILY 01/02/23 11/14/23 History release tramadol 50 mg tablet 50 mg PO Q6H PRN FIBROMYALGIA #90 01/08/23 11/14/23 Rx tabs sulfasalazine 500 mg tablet 1.5 g PO BID #180 tabs 10/29/23 11/14/23 Rx lisinopril 5 mg tablet 5 mg PO HS #90 tabs 10/30/23 11/14/23 Rx simvastatin 20 mg tablet 20 mg PO QHS #90 tabs 10/30/23 11/14/23 Rx metoprolol tartrate 100 mg tablet 100 mg PO BID #180 tabs 11/01/23 11/22/23 Rx budesonide-formoterol HFA 160 2 puff inhalation BID #10.2 grams 11/09/23 11/14/23 Rx mcg-4.5 mcg/actuation aerosol inhaler (Symbicort) gabapentin 400 mg capsule 400 mg PO TID 11/14/23 11/14/23 History infliximab-abda 100 mg intravenous 574 mg IV [id number] 11/14/23 11/14/23 History solution Patient hx anesthesia problems: none Family hx anesthesia problems: none Results Review: All pre-operative results and documents have been reviewed as part of the pre-operative evaluation. [facility] Past Medical History Medical History Allergies Arthritis Asthma Benign hypertension Bilateral hand pain CHF (congestive heart failure) Chronic low back pain CKD (chronic kidney disease) stage 3, GFR 30-59 ml/min Diastolic heart failure Fibromyalgia GERD without esophagitis History of colon polyps Hyperparathyroidism Hypertensive heart disease with heart failure Lymphadenopathy (~2018) left arm Mixed hyperlipidemia KEO (obstructive sleep apnea) Pulmonary embolism (~2010) Pulmonary nodule less than 6 cm determined by computed tomography of lung (~2016) Bilateral upper lungs Renal cyst, left (~2016) Rheumatoid arthritis without rheumatoid factor, unspecified site Rosacea Surgical History Surgical History History of bilateral mastectomy 2002 - due to recurrent benign lesions ductal ectasia History of bunionectomy of both great toes 1980s History of laparoscopy adhesionolysis - Family History Family Hi
[2023-11-22] MEDS: LACTATED RINGERS 1,000 ML 150 ML IV CONT (10:32)
--- NOTE | 2023-11-22 10:59 | PM.HPGS ---
History of Present Illness History of Present Illness Consent: Risks, benefits, and alternatives have been discussed and questions answered. Patient agrees to proceed with procedure. Chief complaint: History colon polyps Narrative: Sunita Lopez is a 73 year old female with colon polyps in 2020 Review of Systems Review of Systems: All systems reviewed & are unremarkable except as noted in HPI and below PMFSH Past Medical History Medical History (Updated 11/22/23 @ 11:00 by Germain Rodriguez MD) Adenomatous colon polyp Allergies Arthritis Asthma Benign hypertension Bilateral hand pain CHF (congestive heart failure) Chronic low back pain CKD (chronic kidney disease) stage 3, GFR 30-59 ml/min Diastolic heart failure Fibromyalgia GERD without esophagitis History of colon polyps Hyperparathyroidism Hypertensive heart disease with heart failure Lymphadenopathy (~2018) left arm Mixed hyperlipidemia KEO (obstructive sleep apnea) Pulmonary embolism (~2010) Pulmonary nodule less than 6 cm determined by computed tomography of lung (~2016) Bilateral upper lungs Renal cyst, left (~2016) Rheumatoid arthritis without rheumatoid factor, unspecified site Rosacea Surgical History Surgical History History of bilateral mastectomy 2002 - due to recurrent benign lesions ductal ectasia History of bunionectomy of both great toes History of laparoscopy adhesionolysis - Family History Family History Mother Family history of transient ischemic attacks Heart disease Family history of atrial fibrillation Family history of rheumatoid arthritis Hypertension Father Family history of hearing loss Alzheimers disease Heart disease Family history of rheumatoid arthritis Sibling Heart disease Parkinsons disease Grandparent Heart disease Hypertension Other Family history of malignant neoplasm of ovary Social History Social History Smoking status: Never smoker Second hand tobacco smoke exposure: No Alcohol intake: never Substance use: never Substance use type: does not use Lack of Transportation: No Lack of Food: Never True Current Housing: I Have Housing Concerned About Future Housing: No Difficulty Paying Gas/Electric Bills: No Difficulty Paying for Meds: No Currently Unemployed: No Education: Associate Degree Difficulty w/ Childcare or Family Care: No Living arrangements: with family Additional living arrangements comments: MOM Occupation/Education: retired Gender identity (if verbalized by the patient): Female Spiritual care concerns: No Agree to blood products: Yes Meds Home Medications and Allergies Home Medications Medication Instructions Recorded Confirmed Type B-complex with vitamin C (Super B 1 tablet PO DAILY 05/25/20 11/14/23 History Complex-Vitamin C tablet) aspirin 81 mg tablet,delayed 81 mg PO HS 05/25/20 11/14/23 History release (Adult Low Dose Aspirin) cetirizine 10 mg tablet (Allergy 10 mg PO DAILY PRN Allergy Symptoms 05/25/20 11/14/23 History Relief (cetirizine)) artificial tears solution eye drops 1 drp ophthalmic (eye) BID 03/13/21 11/14/23 History acetaminophen 500 mg tablet 500 mg PO Q6H PRN pain 12/14/21 11/22/23 History (Tylenol Extra Strength) albuterol sulfate 90 mcg/actuation 1 - 2 puff inhalation Q4-6H PRN 11/13/22 11/14/23 Rx aerosol inhaler shortness of breath or wheezing #8.5 grams furosemide 20 mg tablet See Rx Instructions PO DAILY #40 11/15/22 11/14/23 Rx tabs cholecalciferol (vitamin D3) 25 50 mcg PO DAILY 01/02/23 11/14/23 History mcg (1,000 unit) tablet omeprazole 20 mg capsule,delayed 20 mg PO DAILY 01/02/23 11/14/23 History release tramadol 50 mg tablet 50 mg PO Q6H PRN FIBROMYALGIA #90 01/08/23 11/14/23 Rx
[2023-11-22 11:29] VITALS: BP 101/55; PULSE 67; RESP 16; O2SAT 97
[2023-11-22 11:39] VITALS: BP 108/49; PULSE 64; RESP 12; O2SAT 99
[2023-11-22 11:49] VITALS: BP 109/60; PULSE 59; RESP 14; O2SAT 99
== END 2023-11-22 12:20 | disposition home or self-care (01) ==
PROVIDERS: PCP Family Medicine; Visit Provider Internal Medicine Gastroenterology
PROC: 0DJD8ZZ Inspection of Lower Intestinal Tract, Via Natural or Artificial Opening Endoscopic (ICD-10-PCS; CPT 45378; principal; 2023-11-22 11:30)
DX: Z12.11 Encounter for screening for malignant neoplasm of colon (principal); D12.0 Benign neoplasm of cecum; D12.3 Benign neoplasm of transverse colon; D12.4 Benign neoplasm of descending colon; K64.8 Other hemorrhoids; I11.0 Hypertensive heart disease with heart failure; I50.30 Unspecified diastolic (congestive) heart failure; J45.909 Unspecified asthma, uncomplicated; E78.2 Mixed hyperlipidemia; K21.9 Gastro-esophageal reflux disease without esophagitis; I12.9 Hypertensive chronic kidney disease with stage 1 through stage 4 chronic kidney disease, or unspecified chronic kidney disease; N18.30 Chronic kidney disease, stage 3 unspecified; G47.33 Obstructive sleep apnea (adult) (pediatric); E21.3 Hyperparathyroidism, unspecified; G89.29 Other chronic pain; M54.50 Low back pain, unspecified; E66.01 Morbid (severe) obesity due to excess calories; Z68.43 Body mass index [BMI] 50.0-59.9, adult; Z79.82 Long term (current) use of aspirin; Z79.51 Long term (current) use of inhaled steroids; Z79.891 Long term (current) use of opiate analgesic; Z98.890 Other specified postprocedural states; Z86.711 Personal history of pulmonary embolism; Z82.49 Family history of ischemic heart disease and other diseases of the circulatory system; Z80.41 Family history of malignant neoplasm of ovary
CPT/HCPCS: 45380; 45385; 88305; J2371; J2704; J7120

== ENCOUNTER 2024-05-08 12:04 | Outpatient (CLI) | payer MEDICARE, OTHER, SELFPAY ==
[2024-05-08 12:40] LABS: Alanine Aminotransferase 20 U/L (6-35); Albumin Level 4.6 g/dL (3.5-5.1); Alkaline Phosphatase 59 U/L (38-126); Anion Gap 11 mmol/L (4-12); Aspartate Amino Transferase 28 U/L (14-36); Bilirubin,Total 0.3 mg/dL (0.2-1.3); Blood Urea Nitrogen 18 mg/dL (7-17); Calcium 10.4 mg/dL (8.4-10.2); Carbon Dioxide 25 mmol/L (22-30); Chloride 104 mmol/L (98-107); Estimated Glomerular Filt Rate 49; Glucose 81 mg/dL (65-110); Phosphorus 3.3 mg/dL (2.5-4.5); Sodium 140 mmol/L (137-145)
[2024-05-08 12:51] LABS: Parathyroid Intact 72.7 pg/mL (14.5-75.2)
[2024-05-08 14:15] LABS: Free T4 Free Thyroxine 0.97 ng/mL (0.78-2.19); Vitamin D 25 Hydroxy 78.3 ng/mL
[2024-05-09 15:07] LABS: Ionized Calcium 5.3 mg/dL (4.7-5.5)
[2024-05-10 05:18] LABS: Triiodothyronine T3 Free 2.7 pg/mL (2.3-4.2)
== END 2024-05-08 12:05 | disposition home or self-care (01) ==
LOC: ANHLAB 12:06
PROVIDERS: PCP Family Medicine; Visit Provider Internal Medicine Endocrinology, Diabetes & Metabolism
DX: E21.3 Hyperparathyroidism, unspecified (principal); E55.9 Vitamin D deficiency, unspecified; I50.32 Chronic diastolic (congestive) heart failure; M85.80 Other specified disorders of bone density and structure, unspecified site; R79.89 Other specified abnormal findings of blood chemistry; E04.9 Nontoxic goiter, unspecified; Z91.89 Other specified personal risk factors, not elsewhere classified
CPT/HCPCS: 36415; 80053; 80069; 82306; 82330; 83970; 84439; 84443; 84481

== ENCOUNTER 2024-05-29 14:18 | Outpatient (CLI) | payer MEDICARE, SELFPAY ==
[2024-05-29 14:44] LABS: Basophils Absolute Auto 0.1 K/mm3 (0.0-0.1); Basophils Percent Auto 1.4 % (0.2-1.2); Eosinophils Absolute Auto 0.3 K/mm3 (0-0.3); Hematocrit 43.6 % (37.0-47.0); Hemoglobin 14.3 g/dL (12.0-15.0); Immature Granulocyte Absolute 0.02 K/mm3 (0.00-0.031); Immature Granulocyte Percent A 0.3 % (0-0.5); Lymphocytes Percent Auto 34.7 % (18.3-44.2); Mean Corpuscular HGB Conc 32.8 g/dl (32-36); Mean Corpuscular Hemoglobin 32.2 pg (26-34); Mean Corpuscular Volume 98.2 fl (80-100); Mean Platelet Volume 9.8 fl (7.4-10.4); Monocytes Absolute Auto 0.5 K/mm3 (0.1-0.6); Monocytes Percent Auto 7.9 % (2.6-8.5); Neutrophils Absolute Auto 3.4 K/mm3 (1.3-6.7); Neutrophils Percent Auto 50.7 % (45.5-73.1); Platelet Count Result 216 k/mm3 (150-375); Red Blood Count 4.44 M/mm3 (4.2-5.4); Red Cell Distribution Width 12.5 % (11.5-14.5); White Blood Count 6.6 K/mm3 (4.5-10.0)
[2024-05-31 11:03] LABS: NIL 0.01 IU/mL; Quantiferon TB Plus, 1T NEGATIVE (NEGATIVE)
== END 2024-05-29 14:19 | disposition home or self-care (01) ==
PROVIDERS: PCP Family Medicine; Visit Provider Internal Medicine
DX: M06.9 Rheumatoid arthritis, unspecified (principal)
CPT/HCPCS: 36415; 85025; 86480

== ENCOUNTER 2024-08-11 10:43 | Outpatient (CLI) | payer MEDICARE, SELFPAY ==
[2024-08-11 11:51] LABS: Add Urine Microscopic? YES; Appearance Urine Cloudy (Clear); Bacteria Urine None Seen /hpf; Bilirubin Urine 2+ (Negative); Blood Urine Negative (Negative); Color Urine Dark Yellow (Yellow); Glucose Urine UA Negative (Negative); Hyaline Casts Urine Present /lpf; Ketones Urine Trace mg/dL (Negative); Leukocyte Esterase Ur 1+ LEU/UL (Negative); Mucus Urine Present /lpf; Need Manual Microscopic Reviewed; Nitrate Urine Negative (Negative); Non Pathogenic Casts >20; Protein Urine 1+ mg/dL (Negative); Specific Grav Ur 1.036 (1.001-1.035); Squamous Epithelial Cell Urine Moderate /hpf (Few)
[2024-08-11 12:01] LABS: Hematocrit 44.4 % (37.0-47.0); Hemoglobin 14.1 g/dL (12.0-15.0); Mean Corpuscular HGB Conc 31.8 g/dl (32-36); Mean Corpuscular Hemoglobin 31.3 pg (26-34); Mean Corpuscular Volume 98.4 fl (80-100); Mean Platelet Volume 10.3 fl (7.4-10.4); Platelet Count Result 237 k/mm3 (150-375); Red Blood Count 4.51 M/mm3 (4.2-5.4)
[2024-08-11 12:30] LABS: Erythrocyte Sedimentation Rate 12 mm/hr (0-20)
== END 2024-08-11 10:44 | disposition home or self-care (01) ==
LOC: ANHLAB 10:48
PROVIDERS: PCP Family Medicine; Visit Provider Internal Medicine
DX: M06.00 Rheumatoid arthritis without rheumatoid factor, unspecified site (principal); M19.90 Unspecified osteoarthritis, unspecified site
CPT/HCPCS: 36415; 80053; 81001; 85027; 85652; 86140; 87086

== ENCOUNTER 2024-08-14 15:55 | Outpatient (CLI) | payer MEDICARE, SELFPAY ==
[2024-08-14 19:33] LABS: Alanine Aminotransferase 23 U/L (6-35); Albumin Level 4.3 g/dL (3.5-5.1); Alkaline Phosphatase 85 U/L (38-126); Anion Gap 5 mmol/L (4-12); Aspartate Amino Transferase 32 U/L (14-36); Bilirubin,Total 0.6 mg/dL (0.2-1.3); Blood Urea Nitrogen 23 mg/dL (7-17); CRP < 0.5 mg/dL (<1.0); Carbon Dioxide 26 mmol/L (22-30); Chloride 108 mmol/L (98-107); Cholesterol 214 mg/dL (0-200); Estimated Glomerular Filt Rate 54; Glucose 99 mg/dL (65-110); HDL Direct 86 mg/dL; Potassium 4.9 mmol/L (3.4-5.0); Sodium 139 mmol/L (137-145); Triglycerides 127 mg/dL (<150)
[2024-08-14 19:38] LABS: LDL Cholesterol Direct 100 mg/dL
[2024-08-14 20:47] LABS: Free T4 Free Thyroxine Reflex 1.04 ng/dL (0.78-2.19)
[2024-08-14 21:38] LABS: Hemoglobin A1C 4.9 % (<5.7)
== END 2024-08-14 15:56 | disposition home or self-care (01) ==
PROVIDERS: PCP Family Medicine; Visit Provider Family Medicine
DX: E78.5 Hyperlipidemia, unspecified (principal); R73.9 Hyperglycemia, unspecified; E55.9 Vitamin D deficiency, unspecified; I10 Essential (primary) hypertension; E53.8 Deficiency of other specified B group vitamins; M06.00 Rheumatoid arthritis without rheumatoid factor, unspecified site
CPT/HCPCS: 36415; 80053; 80061; 82306; 82607; 83036; 84439; 84443; 84480; 86140

== ENCOUNTER 2024-10-27 13:22 | Outpatient (CLI) | payer MEDICARE, SELFPAY ==
--- NOTE | ~2024-10-27 | XR_ITS ---
CHEST RADIOGRAPH, PA AND LATERAL CLINICAL HISTORY: J45.20 - Mild intermittent asthma, uncomplicated . COMPARISON: 01/08/2023 TECHNIQUE: PA and lateral views of the chest. FINDINGS The cardiomediastinal silhouette is unremarkable. The lungs are clear. Visualized osseous structures and soft tissues are unremarkable. IMPRESSION: No focal infiltrate or effusion. Reviewed, dictated and finalized at location A. [facility]
[2024-10-27 14:34] LABS: Hematocrit 42.9 % (37.0-47.0); Mean Corpuscular HGB Conc 32.6 g/dl (32-36); Mean Corpuscular Hemoglobin 30.8 pg (26-34); Mean Corpuscular Volume 94.3 fl (80-100); Mean Platelet Volume 10.5 fl (7.4-10.4); Platelet Count Result 183 k/mm3 (150-375); Red Blood Count 4.55 M/mm3 (4.2-5.4); Red Cell Distribution Width 12.5 % (11.5-14.5); White Blood Count 5.7 K/mm3 (4.5-10.0)
[2024-10-27 14:48] LABS: Alanine Aminotransferase 24 U/L (6-35); Albumin Level 4.3 g/dL (3.5-5.1); Alkaline Phosphatase 43 U/L (38-126); Anion Gap 13 mmol/L (4-12); Aspartate Amino Transferase 29 U/L (14-36); Bilirubin,Total 0.6 mg/dL (0.2-1.3); Blood Urea Nitrogen 20 mg/dL (7-17); CRP 0.9 mg/dL (<1.0); Calcium 10.5 mg/dL (8.4-10.2); Carbon Dioxide 25 mmol/L (22-30); Chloride 100 mmol/L (98-107); Estimated Glomerular Filt Rate 47; Glucose 83 mg/dL (65-110); Phosphorus 2.7 mg/dL (2.5-4.5); Sodium 138 mmol/L (137-145)
[2024-10-27 15:15] LABS: Influenza A QL RT-PCR Positive (Negative); Influenza B QL RT-PCR Negative (Negative); RSV RNA, RT-PCR Negative (Negative); SARS-CoV-2 RNA PCR Negative (Negative)
--- OUTSIDE RECORDS SUMMARY | 2024-10-27 15:18 | XMS_ITS | Referral Summary ---
Author Organization [facility] Address [address] [place] [address] Care Team Providers Care Lay Out Former Name Role Phone Alida Horne MD Primary Care Provider Encounters Date Type Department Care Team Description 08/11/2024 10:30 AM MED CARE MANAGER Office Visit [facility] Medical [facility] Cardiology [address] [place] [address] Kirk Dowling MD Mixed hyperlipidemia (Primary Dx); Hypertensive heart disease with chronic diastolic congestive heart failure (CMS/HCC) (HCC); Chronic diastolic congestive heart failure (CMS/HCC) (HCC); Benign hypertension; History of pulmonary embolism from Last 3 Months Allergies Active Allergy Reactions Criticality Noted Date Comments Adhesive Tape-Silicones Hydroxychloroquine Iodides Itching Low 04/02/2013 Itching Mackey Anaphylaxis,Itching, Rash High Reaction: ANAPHYLAXIS, itching, rash, Shellfish Derived Medications omeprazole (PriLOSEC) 20 mg capsule Take 1 capsule (20 mg total) by mouth daily. 90 capsule 3 9 Active naphazoline-phe niramine (NAPHCON-A) 0.025-0.3 % ophthalmic solution Administer into affected eye(s) 7 Active lisinopriL (PRINIVIL,ZESTR IL) 5 mg tablet Take 1 tablet by mouth once daily 90 tablet 3 05/03/202 0 Active gabapentin (NEURONTIN) 400 mg capsule Take 1 capsule by mouth 4 times daily 120 capsule 6 0 Active traMADoL (ULTRAM) 50 mg tablet TAKE 1 TABLET BY MOUTH EVERY 6 HOURS NEEDED FOR PAIN 120 tablet 0 Active simvastatin (ZOCOR) 20 mg tablet TAKE 1 TABLET BY MOUTH ONCE DAILY IN THE EVENING 90 tablet 1 0 Active metoprolol (LOPRESSOR) 100 mg tablet Take 1 tablet by mouth twice daily 180 tablet 1 0 Active vitamin B complex (B COMPLEX 1 ORAL) Acti ve aspirin 81 mg enteric coated tablet Take 1 tablet (81 mg total) by mouth daily Active albuterol HFA (PROVENTIL HFA,VENTOLIN HFA,PROAIR HFA) 90 mcg/actuation inhaler INHALE 2 PUFFS BY MOUTH 4 TIMES DAILY NEEDED FOR SHORTNESS OF BREATH FOR WHEEZING 1 Active Symbicort 160-4.5 mcg/actuation inhaler INHALE 2 PUFFS BY MOUTH EVERY 12 HOURS 1 Active sulfaSALAzine (AZULFIDINE) 500 mg tablet Take 3 tablets (1,500 mg total) by mouth 2 (two) times a day 1 Active furosemide (LASIX) 20 mg tabletIndicatio ns:Edema, lower extremity Take alternating daily doses of 20 mg and 40 mg 45 tablet 11 1 Active fluticasone propionate (FLONASE) 50 mcg/actuation nasal spray Administer 2 sprays into each nostril daily Active cholecalciferol (Vitamin D3) 2000 unit capsule 1 capsule (2,000 Units total) Active Active Problems Problem Noted Date Diagnosed Date Mixed hyperlipidemia 10/23/2022 History of pulmonary embolism 05/18/2021 Chronic respiratory failure with hypoxia (CMS/HC C) 05/18/2021 Hypersomnolence 11/09/2020 Chronic fatigue 09/08/2020 Dizziness 11/25/2018 Hyperkalemia 02/26/2018 KEO (obstructive sleep apnea) 06/19/2017 Morbid obesity with BMI of 50.0-59.9, adult 03/04 Palpitations 03/30/2017 Chronic diastolic congestive heart failure (CMS/ HCC) 03/30/2017 Fibromyalgia 03/30/2017 Morbid obesity 08/09/2015 Overview (12/08/2016): Morbid obesity with BMI of 45.0-49.9, adult Hypertensive heart disease with congestive heart failure 08/09/2015 Overview (12/08/2016): Hypertensive heart disease with diastolic heart failure Gastroesophageal reflux disease 12/16/2014 Overview (12/08/2016): GERD (gastroesophageal reflux disease) Malignant neoplasm of breast 01/17/2014 Overview (12/06/2016): Breast cancer Benign hypertension 01/17/2014 Overview (12/07/2016): BENIGN HYPERTENSION Rheumatoid arthritis of [facility] with negative rheumatoid factor ([facility]) 01/17/2014 Overview (12/08/2016): RHEUMATOID ARTHRITIS Resolved Problems Problem Noted Date Diagnosed Date Resolved Date Dyslipidemia 03/30/2017 10/23/2022 Malaria 01/17/2014 11/20/2017 Overview (12/06/2016): Malaria Pulmonary embolism 01/17/2014 8 Overview (12/07/2016): Pulmonary embolus Immunizations Immunization Administration Dates Next Due DTaP 5 Pertussis 06/29/2020,12/02/2006 Influenza, Quadrivalent, Hig h Dose, Preservative Free, Intrr 06/29/2020 Influenza, Trivalent, High D ose, Split, Preservative Free, Intramuscular 07/02/2019,05/30/2018,05/17/2016,07/08 Influenza, Trivalent, IM (MDV) 05/29/2014 Influenza, Trivalent, Preser vative Free, Intramuscular 09/17/2012 Influenza, Unspecified 06/29/2020,05/30/2018 Pneumococcal Conjugate PCV 13 07/08/2015 Pneumococcal Polysaccharide PPV23 05/17/2016,07/2009 Tdap 06/29/2020 Social History Tobacco Use Types Packs/Day Years Used Date Smoking Tobacco: Never Smokeless Tobacco: Never Comments:Worked in [employer] with lots of smoke. Alcohol Use Standard Drinks/Week Comments No 0 (1 standard drink = 0.6 oz pur e alcohol) PHQ-2 Answer Date Recorded PHQ-2 Score 0 04/24/2019 Comments Unknown Sex and Gender Information Value Date Recorded Sex Assigned at Female 11/18/2018 7:15 PM CDT Legal Sex Female 12:47 AM MED CARE MANAGER Gender Identity Female 11/18/2018 7:15 PM CDT Sexual Orientation Straight 07/14/2020 7: 19 PM MED CARE MANAGER Last Filed Vital Signs Vital Sign Reading Time Taken Comments Blood Pressure 102/58 08/11/2024 10:13 AM MED CARE MANAGER Pulse 74 08/11/2024 10:13 AM MED CARE MANAGER Temperature 36.1 C (97 F) 09/15/2020 2:07 PM MED CARE MANAGER Respiratory Rate 18 03/24/2019 2:06 PM CDT Oxygen Saturation 95% 08/11/2024 10:13 AM MED CARE MANAGER with oxygen Inhaled Oxygen Concentration - - Weight 112.5 kg (248 lb) 08/11/2024 10:13 AM MED CARE MANAGER Height 152.4 cm (5') 08/11/2024 10:13 AM MED CARE MANAGER Body Mass Index 48.43 08/11/2024 10:13 AM MED CARE MANAGER Plan of Treatment Not on file Procedures Procedure Name Priority Date/Time Associated Diagnosis Comments POCT LIPID PANEL Routine 08/11/2024 2:48 PM MED CARE MANAGER Mixed hyperlipidemia from Last 3 Months Results * POCT lipid panel (08/11/2024 2:48 PM MED CARE MANAGER) Cholesterol, POC 224 mg/dL Comment:GLU =110 HDL, POC 80 mg/dL Triglycerides, POC 117 mg/dL LDL Cholesterol POC 120 mg/dL Chol/HDL Ratio, POC 1.5 Non-HDL Cholesterol, POC 143 mg/dL Cholesterol Total, POC 224 mg/dL Capillary blood 08/11/2024 2 :48 PM MED CARE MANAGER us Kirk Dowling MD POINT OF CARE TEST O RDERABLES Final Result from Last 3 Months Insurance [facility] [place] MEDICARE [facility] MEDICARE SUPPLEMENT INSURANCE [facility] * Guarantor: Sunita Lopez Account Type Relation to Patient Date of Phone Billing Address Personal/Family Self 1950 [address] [place] [address] MEDICARE MEDICARE SOLUTIONS [facility] MEDICARE SUPPLEMENT INSURANCE * Guarantor: Sunita Lopez Account Type Relation to Patient Date of Phone Billing Address Personal/Family Self [address] [place] [address] MEDICARE [facility] MEDICARE [place] [address] [place] [address] MEDICARE SUPPLEMENT INSURANCE Care Teams Lay Out Former Relationship Specialty Start Date End Date Alida Horne MD PCP - General Family Practice 09/07/20
--- OUTSIDE RECORDS SUMMARY | 2024-10-27 15:18 | XMS_ITS | Clinical Summary ---
Author Organization [facility] Address [address] [place] [address] Care Team Providers Care Glue Bone Crusher Name Role Phone Alida Horne MD Primary Care Provider Allergies Active Allergy Reactions Criticality Noted Date Comments Adhesive Tape-Silicones Hydroxychloroquine Iodides Itching Low 04/02/2013 Itching Miston Anaphylaxis,Itching, Rash High Reaction: ANAPHYLAXIS, itching, rash, Shellfish Derived Medications omeprazole (PriLOSEC) 20 mg capsule Take 1 capsule (20 mg total) by mouth daily. 90 capsule 3 9 Active naphazoline-phe niramine (NAPHCON-A) 0.025-0.3 % ophthalmic solution Administer into affected eye(s) 7 Active lisinopriL (PRINIVIL,ZESTR IL) 5 mg tablet Take 1 tablet by mouth once daily 90 tablet 3 0 Active gabapentin (NEURONTIN) 400 mg capsule [...] Overview (12/07/2016): BENIGN HYPERTENSION Rheumatoid arthritis of [facility] with negative rheumatoid factor (CMS/HCC) 01/17/2014 Overview (12/08/2016): RHEUMATOID ARTHRITIS Resolved Problems Problem Noted Date Diagnosed Date Resolved Date Dyslipidemia 03/30/2017 10/23/2022 Malaria 01/17/2014 11/20/2017 Overview (12/06/2016): Malaria Pulmonary embolism 01/17/2014 8 Overview (12/07/2016): Pulmonary embolus Encounters Date Type Department Care Team Description 08/11/2024 10:30 AM GRAIN WAFER MACHINE OPERATOR Office Visit [facility] Medical [facility] Cardiology [address] [place] [address] Kirk Dowling MD Mixed hyperlipidemia (Primary Dx); Hypertensive heart disease with chronic diastolic congestive heart failure (CMS/HCC) (HCC); Chronic diastolic congestive heart failure (CMS/HCC) (HCC); Benign hypertension; History of pulmonary embolism from Last 3 Months Immunizations Immunization Administration Dates Next Due DTaP 5 Pertussis 06/29/2020,12/02/2006 Influenza, Quadrivalent, Hig h Dose, Preservative Free, Intrr 06/29/2020 Influenza, Trivalent, High D ose, Split, Preservative Free, Intramuscular 07/02/2019,05/30/2018,05/17/2016,07/08 Influenza, Trivalent, IM (MDV) 05/29/2014 Influenza, Trivalent, Preser vative Free, Intramuscular 09/17/2012 Influenza, Unspecified 06/29/2020,05/30/2018 Pneumococcal Conjugate PCV 13 07/08/2015 Pneumococcal Polysaccharide PPV23 05/17/2016,07/2009 Tdap 06/29/2020 Surgical History Surgery Date Site/Laterality Comments BREAST SURGERY 2003? CATARACT EXTRACTION 09/03/2015 - 09/02/2016 Medical History Medical History Date Comments Hx Other Medical Malaria Hepatitis A virus infection hepa titis A Hx Other Medical bilateral maste ctomies for ductal ectasia Hx Other Medical recurrent bronc hitis Hx Other Medical hemorrhoids Hx Other Medical Varicella zoste r Anxiety disorder Anxiety Hx Other Medical Mauritanian measles and mumps Hx Other Medical 2006 Colonic polyps CHF (congestive heart failur e) (CMS/HCC) (HCC) Palpitations Hypertension GERD (gastroesophageal reflux disease) Arthritis Sleep apnea Asthma 2020 Chronic kidney disease 2019 Family History Medical History Relation Name Comments Other Brother periodic fevers ; Alzheimer's disease Father Irving Lopez Alzheime r's disease; Hearing loss Father Irving Lopez Other Father Irving Lopez hemolytic anemi a txd with rituxan; COPD Father's Sister 1 Familia Wilkinson Hypertension Father's Sister 1 Familia Wilkinson Obesity Father's Sister 1 Familia Wilkinson Depression Father's Sister 2 Inge Brodie Heart disease Maternal Grandfather Ronald Calloway Arthritis Mother Judit Lopez Hearing loss Mother Judit Lopez Heart attack Mother Judit Lopez Memory loss Mother Judit Lopez Cancer Mother's Sister [facility] + [place] olyn Patel Hyperlipidemia Other 2 Family histor y of Hyperlipidemia; Hypertension Other 3 Family history of Hypertension; Coronary artery disease Other 4 Fami ly history of Coronary artery disease; Relation Name Status Comments Brother Father Irving Lopez Father's Sister 1 Familia Wilkinson Father's Sister 2 Inge Calloway Maternal Grandfather Ronald Calloway Mother Judit Lopez Mother's Sister [facility] + Gala Jorge Other 1 Alive Other 2 Other 3 Other 4 Social History Tobacco Use Types Packs/Day Years Used Date Smoking Tobacco: Never Smokeless Tobacco: Never Comments:Worked in [place] with lots of smoke. Alcohol Use Standard Drinks/Week Comments No 0 (1 standard drink = 0.6 oz pur e alcohol) PHQ-2 Answer Date Recorded PHQ-2 Score 0 04/24/2019 Comments Unknown Sex and Gender Information Value Date Recorded Sex Assigned at Female 11/18/2018 7:15 PM CDT Legal Sex Female 12:47 AM GRAIN WAFER MACHINE OPERATOR Gender Identity Female 11/18/2018 7:15 PM CDT Sexual Orientation Straight 07/14/2020 7: 19 PM GRAIN WAFER MACHINE OPERATOR Obstetrics History Last Filed Vital Signs Vital Sign Reading Time Taken Comments Blood Pressure 102/58 08/11/2024 10:13 AM GRAIN WAFER MACHINE OPERATOR Pulse 74 08/11/2024 10:13 AM GRAIN WAFER MACHINE OPERATOR Temperature 36.1 C (97 F) 09/15/2020 2:07 PM GRAIN WAFER MACHINE OPERATOR Respiratory Rate 18 03/24/2019 2:06 PM CDT Oxygen Saturation 95% 08/11/2024 10:13 AM GRAIN WAFER MACHINE OPERATOR with oxygen Inhaled Oxygen Concentration - - Weight 112.5 kg (248 lb) 08/11/2024 10:13 AM GRAIN WAFER MACHINE OPERATOR Height 152.4 cm (5') 08/11/2024 10:13 AM GRAIN WAFER MACHINE OPERATOR Body Mass Index 48.43 08/11/2024 10:13 AM GRAIN WAFER MACHINE OPERATOR Plan of Treatment Health Maintenance Due Date Last Done Comments Colon Cancer Screening-Colonoscopy 1950 Hepatitis C Screening 1950 Osteoporosis Screening-Bone Density Scan 1950 Hepatitis B Screening 1967 Zoster Vaccine (1 of 2) 1999 Well Visit 65+ 2014 Depression Screening 06/05/2019 06/05/2018 Fall Risk Assessment 03/24/2021 03/24/2020, 09/24/2019, 06/05/2018 Influenza Vaccine (#1) 2024 0, 06/29/2020, 07/02/2019, Additional history exists DTaP/Tdap/Td Vaccine (4 - Td or Tdap) 06/29/2030 06/29/2020, 06/29/2020, 12/02/2006 Pneumococcal vaccine 65+ Completed 016, 07/08/2015, 01/11/2009 Procedures Procedure Name Priority Date/Time Associated Diagnosis Comments POCT LIPID PANEL Routine 08/11/2024 2:48 PM GRAIN WAFER MACHINE OPERATOR Mixed hyperlipidemia from Last 3 Months Results * POCT lipid panel (08/11/2024 2:48 PM GRAIN WAFER MACHINE OPERATOR) Cholesterol, POC 224 mg/dL Comment:GLU =110 HDL, POC 80 mg/dL Triglycerides, POC 117 mg/dL LDL Cholesterol POC 120 mg/dL Chol/HDL Ratio, POC 1.5 Non-HDL Cholesterol, POC 143 mg/dL Cholesterol Total, POC 224 mg/dL Capillary blood 08/11/2024 2 :48 PM GRAIN WAFER MACHINE OPERATOR Kirk Dowling MD POINT OF CARE TEST O RDERABLES Final Result from Last 3 Months Insurance [facility] INS [facility] MEDICARE [facility] MEDICARE SUPPLEMENT INSURANCE [facility] * Guarantor: Sunita Lopez Account Type Relation to Patient Date of Phone Billing Address Personal/Family Self 1950 [address] [facility] [address] [place] [address] MEDICARE MEDICARE SOLUTIONS [facility] [employer] MEDICARE SUPPLEMENT INSURANCE * Guarantor: Sunita Lopez Account Type Relation to Patient Date of Phone Billing Address Personal/Family Self 1950 [address] [place] [address] MEDICARE [facility] MEDICARE [place]PPLE[place] [address] [place] [address] MEDICARE SUPPLEMENT INSURANCE Care Teams Glue Bone Crusher Relationship Specialty Start Date End Date Alida Horne MD PCP - General Family Practice 09/07/20
[2024-10-27 16:07] LABS: Erythrocyte Sedimentation Rate 24 mm/hr (0-20)
== END 2024-10-27 13:23 | disposition home or self-care (01) ==
PROVIDERS: PCP Family Medicine; Referring Provider Internal Medicine; Visit Provider Physician Assistant
DX: M06.09 Rheumatoid arthritis without rheumatoid factor, multiple sites (principal); J45.20 Mild intermittent asthma, uncomplicated
CPT/HCPCS: 36415; 71046; 80053; 84100; 85027; 85652; 86140; 87637

== ENCOUNTER 2025-02-10 15:52 | Outpatient (CLI) | payer MEDICARE, SELFPAY ==
--- OUTSIDE RECORDS SUMMARY | 2025-02-10 17:09 | XMS_ITS | Referral Summary ---
Author Organization [facility] Address [address] [place] [address] Care Team Providers Care Drywall Foreman Name Role Phone Alida Horne MD Primary Care Provider Allergies Active Allergy Reactions Criticality Noted Date Comments Adhesive Tape-Silicones Hydroxychloroquine Iodides Itching Low 04/02/2013 Itching [place] Anaphylaxis,Itching, Rash High Reaction: ANAPHYLAXIS, itching, rash, [...] embolism 05/18/2021 Chronic respiratory failure with hypoxia 021 Hypersomnolence 11/09/2020 Chronic fatigue 09/08/2020 Dizziness 11/25/2018 Hyperkalemia 02/26/2018 KEO (obstructive sleep apnea) 06/19/2017 Morbid obesity with BMI of 50.0-59.9, adult 03/04 Palpitations 03/30/2017 Chronic diastolic congestive heart failure 03/30 Fibromyalgia 03/30/2017 Morbid obesity 08/09/2015 Overview (12/08/2016): Morbid obesity with BMI of 45.0-49.9, adult Hypertensive heart disease with congestive heart failure 08/09/2015 Overview (12/08/2016): Hypertensive heart disease with diastolic heart failure Gastroesophageal reflux disease 12/16/2014 Overview (12/08/2016): GERD (gastroesophageal reflux disease) Malignant neoplasm of breast 01/17/2014 Overview (12/06/2016): Breast cancer Benign hypertension 01/17/2014 Overview (12/07/2016): BENIGN HYPERTENSION Rheumatoid arthritis of [facility] with negative rheumatoid factor 01/17/2014 Overview (12/08/2016): RHEUMATOID ARTHRITIS Resolved Problems [...] PM CDT Legal Sex Female 12:47 AM STARTER MECHANIC Gender Identity Female 11/18/2018 7:15 PM CDT Sexual Orientation Straight 07/14/2020 7: 19 PM STARTER MECHANIC Last Filed Vital Signs Vital Sign Reading Time Taken Comments Blood Pressure 102/58 08/11/2024 10:13 AM STARTER MECHANIC Pulse 74 08/11/2024 10:13 AM STARTER MECHANIC Temperature 36.1 C (97 F) 09/15/2020 2:07 PM STARTER MECHANIC Respiratory Rate 18 03/24/2019 2:06 PM CDT Oxygen Saturation 95% 08/11/2024 10:13 AM STARTER MECHANIC with oxygen Inhaled Oxygen Concentration - - Weight 112.5 kg (248 lb) 08/11/2024 10:13 AM STARTER MECHANIC Height 152.4 cm (5') 08/11/2024 10:13 AM STARTER MECHANIC Body Mass Index 48.43 08/11/2024 10:13 AM STARTER MECHANIC Plan of Treatment Not on file Insurance [employer] [facility] INS [place] MEDICARE [facility] MEDICARE SUPPLEMENT INSURANCE [facility] * Guarantor: Sunita Lopez Account Type Relation to Patient Date of Phone Billing Address Personal/Family Self 1950 [address] [facility] [address] [place] [address] MEDICARE [facility] MEDICARE ADVANTAGE [facility] MEDIC[facility] Address: [address] [address] [place] [address] [facility] [employer] MEDICARE SUPPLEMENT INSURANCE * Guarantor: Sunita Lopez Account Type Relation to Patient Date of Phone Billing Address Personal/Family Self 1950 [address] [facility] [address] [place] [address] MEDICARE [facility] MEDICARE SUPPLEMENT [facility] MEDICARE SUPPLEMENT INSURANCE Care Teams Drywall Foreman Relationship Specialty Start Date End Date Alida Horne MD PCP - General Family Practice 09/07/20
--- OUTSIDE RECORDS SUMMARY | 2025-02-10 17:09 | XMS_ITS | Clinical Summary ---
Author Organization [facility] Address [address] [place] [address] Care Team Providers Care Plant Anatomist Name Role Phone Alida Horne MD Primary Care Provider Allergies Active Allergy Reactions Criticality Noted Date Comments Adhesive Tape-Silicones Hydroxychloroquine Iodides Itching Low 04/02/2013 Itching [place] Anaphylaxis,Itching, Rash High Reaction: ANAPHYLAXIS, itching, rash, [...] Overview (12/07/2016): BENIGN HYPERTENSION Rheumatoid arthritis of [facility] with negative rheumatoid factor 01/17/2014 Overview [...] r Anxiety disorder Anxiety Hx Other Medical Romansh measles and mumps Hx Other Medical 2006 Colonic polyps CHF (congestive heart failure) (HCC) Palpitations Hypertension GERD (gastroesophageal reflux disease) [...] Familia Wilkinson Depression Father's Sister 2 Inge Calloway Heart disease Maternal Grandfather Ronald Calloway Arthritis Mother Judit Lopez Hearing loss Mother Judit Lopez Heart attack Mother Judit Lopez Memory loss Mother Judit Lopez Cancer Mother's Sister [facility] + [place] Patel Hyperlipidemia Other 2 Family histor y of Hyperlipidemia; Hypertension Other 3 Family history of Hypertension; Coronary artery disease Other 4 Fami ly history of Coronary artery disease; Relation Name Status Comments Brother Father Irving Lopez Father's Sister 1 Familia Wilkinson Father's Sister 2 Inge Calloway Maternal Grandfather Ronald Calloway Mother Judit Lopez Mother's Sister [facility] + [place] Pat[place] Other 1 Alive Other 2 Other 3 Other 4 Social History Tobacco Use Types Packs/Day Years Used Date Smoking Tobacco: Never Smokeless Tobacco: Never Comments:Worked in [employer] with lots of smoke. Alcohol Use Standard Drinks/Week Comments No 0 (1 standard drink = 0.6 oz pur e alcohol) PHQ-2 Answer Date Recorded PHQ-2 Score 0 04/24/2019 Comments Unknown Sex and Gender Information Value Date Recorded Sex Assigned at Female 11/18/2018 7:15 PM CDT Legal Sex Female 12:47 AM MANAGER TEST Gender Identity Female 11/18/2018 7:15 PM CDT Sexual Orientation Straight 07/14/2020 7: 19 PM MANAGER TEST Obstetrics History Last Filed Vital Signs Vital Sign Reading Time Taken Comments Blood Pressure 102/58 08/11/2024 10:13 AM MANAGER TEST Pulse 74 08/11/2024 10:13 AM MANAGER TEST Temperature 36.1 C (97 F) 09/15/2020 2:07 PM MANAGER TEST Respiratory Rate 18 03/24/2019 2:06 PM CDT Oxygen Saturation 95% 08/11/2024 10:13 AM MANAGER TEST with oxygen Inhaled Oxygen Concentration - - Weight 112.5 kg (248 lb) 08/11/2024 10:13 AM MANAGER TEST Height 152.4 cm (5') 08/11/2024 10:13 AM MANAGER TEST Body Mass Index 48.43 08/11/2024 10:13 AM MANAGER TEST Plan of Treatment Health Maintenance Due Date Last Done Comments Colon Cancer Screening-Colonoscopy 1950 Hepatitis C Screening 1950 Osteoporosis Screening-Bone Density Scan 1950 Hepatitis B Screening 1967 Zoster Vaccine (1 of 2) 1999 Well Visit 65+ 2014 Depression Screening 06/05/2019 06/05/2018 Fall Risk Assessment 03/24/2021 03/24/2020, 09/24/2019, 06/05/2018 Influenza Vaccine (Season Ended) 2025 06/29/2020, 06/29/2020, 07/02/2019, Additional history exists DTaP/Tdap/Td Vaccine (4 - Td or Tdap) 06/29/2030 06/29/2020, 06/29/2020, 12/02/2006 Pneumococcal vaccine 65+ Completed 016, 07/08/2015, 01/11/2009 Insurance [employer] [facility] INS CO MEDICARE [facility] MEDICARE SUPPLEMENT INSURANCE [facility] * Guarantor: Sunita Lopez Account Type Relation to Patient Date of Phone Billing Address Personal/Family Self 1950 [address] [facility] [address] [place] [address] MEDICARE [facility] MEDICARE ADVANTAGE [facility] MEDICARE SUPPLEMENT INSURANCE * Guarantor: Sunita Lopez Account Type Relation to Patient Date of Phone Billing Address Personal/Family Self 1950 [address] [facility] [address] [place] [address] MEDICARE [facility] Address: [address] [address] [place] [address] [facility] MEDICARE SUPPLEMENT [facility] MEDICARE SUPPLEMENT INSURANCE Care Teams Plant Anatomist Relationship Specialty Start Date End Date Alida Horne MD PCP - General Family Practice 09/07/20
[2025-02-10 17:29] LABS: Parathyroid Intact 57.1 pg/mL (14.5-75.2)
[2025-02-10 17:33] LABS: Vitamin D 25 Hydroxy 60.7 ng/mL
[2025-02-12 10:04] LABS: Ionized Calcium 5.4 mg/dL (4.7-5.5)
== END 2025-02-10 15:53 | disposition home or self-care (01) ==
LOC: ANHLAB 16:01
PROVIDERS: PCP Family Medicine; Visit Provider Internal Medicine Endocrinology, Diabetes & Metabolism
DX: E21.3 Hyperparathyroidism, unspecified (principal); M85.851 Other specified disorders of bone density and structure, right thigh; M85.852 Other specified disorders of bone density and structure, left thigh; E55.9 Vitamin D deficiency, unspecified
CPT/HCPCS: 36415; 82306; 82330; 83970

== ENCOUNTER 2025-02-10 16:06 | Outpatient (CLI) | payer MEDICARE, SELFPAY ==
[2025-02-10 17:19] LABS: Basophils Absolute Auto 0.1 K/mm3 (0.0-0.1); Basophils Percent Auto 1.1 % (0.2-1.2); Eosinophils Absolute Auto 0.4 K/mm3 (0-0.3); Eosinophils Percent Auto 4.8 % (0-4.4); Hematocrit 43.7 % (37.0-47.0); Immature Granulocyte Absolute 0.03 K/mm3 (0.00-0.031); Immature Granulocyte Percent A 0.4 % (0-0.5); Lymphocytes Absolute Auto 1.94 K/mm3 (0.9-3.2); Lymphocytes Percent Auto 24.4 % (18.3-44.2); Mean Corpuscular Hemoglobin 30.4 pg (26-34); Mean Platelet Volume 9.7 fl (7.4-10.4); Monocytes Absolute Auto 0.7 K/mm3 (0.1-0.6); Monocytes Percent Auto 9.3 % (2.6-8.5); Neutrophils Absolute Auto 4.8 K/mm3 (1.3-6.7); Platelet Count Result 244 k/mm3 (150-375); Red Cell Distribution Width 13.1 % (11.5-14.5)
[2025-02-10 17:24] LABS: Alanine Aminotransferase 16 U/L (6-35); Albumin Level 4.8 g/dL (3.5-5.1); Alkaline Phosphatase 45 U/L (38-126); Anion Gap 9 mmol/L (4-12); Aspartate Amino Transferase 27 U/L (14-36); Bilirubin,Total 0.4 mg/dL (0.2-1.3); Blood Urea Nitrogen 25 mg/dL (7-17); CRP < 0.5 mg/dL (<1.0); Calcium 11.1 mg/dL (8.4-10.2); Carbon Dioxide 26 mmol/L (22-30); Chloride 102 mmol/L (98-107); Estimated Glomerular Filt Rate 42; Glucose 92 mg/dL (65-110); Potassium 4.7 mmol/L (3.4-5.0); Sodium 137 mmol/L (137-145); Total Protein 7.5 g/dL (6.3-8.2)
[2025-02-10 17:54] LABS: Erythrocyte Sedimentation Rate 12 mm/hr (0-20)
== END 2025-02-10 16:07 | disposition home or self-care (01) ==
PROVIDERS: PCP Family Medicine; Visit Provider Internal Medicine
DX: M06.09 Rheumatoid arthritis without rheumatoid factor, multiple sites (principal); Z79.899 Other long term (current) drug therapy
CPT/HCPCS: 36415; 80053; 85025; 85652; 86140

== ENCOUNTER 2025-02-12 15:01 | Outpatient (CLI) | payer MEDICARE, SELFPAY ==
--- NOTE | ~2025-02-12 | XR_ITS ---
Left Shoulder Technique: AP and scapular Y views were obtained. Clinical History: Pain Findings: No fracture or dislocation is seen. Osseous alignment is anatomic. The glenohumeral and acr omioclavicular joint spaces are preserved. Soft tissues are unremarkable. Impression: Unremarkable left shoulder radiographs. Reviewed, dictated and finalized at [facility]. Impression: Unremarkable left shoulder radiographs.
--- NOTE | ~2025-02-12 | XR_ITS ---
AP and lateral views of the sacrum/coccyx CLINICAL HISTORY: Pain FINDINGS: No fracture or dislocation seen. There is advanced degenerative disc narrowing at L5-S1 wit h facet arthropathy at the lower lumbar spine. There is mild degenerative change of the SI joints. Gr ouped, vague ovoid radiodensities in the right pelvis are probably related to bowel contents. IMPRESSION: No acute abnormality. Degenerative changes of the lumbar spine and SI joints, as above. Grouped ovoid radiodensities in the right lower quadrant probably reflect bowel contents. Correlate c linically. Reviewed, dictated and finalized at location . IMPRESSION: No acute abnormality. Degenerative changes of the lumbar spine and SI joints, as above. Grouped ovoid radiodensities in the right lower quadrant probably reflect bowel contents. Correlate clinically.
== END 2025-02-12 15:02 | disposition home or self-care (01) ==
LOC: GOSHIMG 15:02
PROVIDERS: PCP Internal Medicine; Visit Provider Family Medicine
DX: M47.816 Spondylosis without myelopathy or radiculopathy, lumbar region (principal); M25.512 Pain in left shoulder; M47.818 Spondylosis without myelopathy or radiculopathy, sacral and sacrococcygeal region; R93.5 Abnormal findings on diagnostic imaging of other abdominal regions, including retroperitoneum; Z91.81 History of falling
CPT/HCPCS: 72220; 73030

== ENCOUNTER 2025-08-11 12:06 | Outpatient (CLI) | payer MEDICARE, SELFPAY ==
[2025-08-11 12:45] LABS: Hematocrit 41.9 % (37.0-47.0); Hemoglobin 13.4 g/dL (12.0-15.0); Immature Granulocyte Percent A 0.3 % (0-0.5); Lymphocytes Absolute Auto 2.48 K/mm3 (0.9-3.2); Mean Corpuscular HGB Conc 32.0 g/dl (32-36); Mean Corpuscular Hemoglobin 30.9 pg (26-34); Mean Corpuscular Volume 96.5 fl (80-100); Nucleated Red Blood Cells Absolute Auto 0.000 K/mm3 (0.0-0.012); Nucleated Red Blood Cells Perc 0.0 % (0.0-0.2); Platelet Count Result 224 k/mm3 (150-375); Red Blood Count 4.34 M/mm3 (4.2-5.4); White Blood Count 7.8 K/mm3 (4.5-10.0)
[2025-08-11 12:48] LABS: Add Urine Microscopic? YES; Appearance Urine Clear (Clear); Glucose Urine UA Negative (Negative); Leukocyte Esterase Ur 1+ LEU/UL (Negative); Nitrate Urine Negative (Negative); Specific Grav Ur 1.027 (1.001-1.035)
[2025-08-11 13:18] LABS: Alanine Aminotransferase 15 U/L (6-35); Albumin Level 4.3 g/dL (3.5-5.1); Alkaline Phosphatase 72 U/L (38-126); Anion Gap 7 mmol/L (4-12); Aspartate Amino Transferase 22 U/L (14-36); Bilirubin,Total 0.3 mg/dL (0.2-1.3); Blood Urea Nitrogen 39 mg/dL (7-17); CRP < 0.5 mg/dL (<1.0); Calcium 10.2 mg/dL (8.4-10.2); Carbon Dioxide 27 mmol/L (22-30); Chloride 102 mmol/L (98-107); Estimated Glomerular Filt Rate 46; Glucose 85 mg/dL (65-110); Potassium 4.5 mmol/L (3.4-5.0); Sodium 136 mmol/L (137-145); Total Protein 7.1 g/dL (6.3-8.2)
== END 2025-08-11 12:07 | disposition home or self-care (01) ==
PROVIDERS: PCP Family Medicine; Visit Provider Internal Medicine
DX: M06.9 Rheumatoid arthritis, unspecified (principal)
CPT/HCPCS: 36415; 80053; 81001; 84100; 85025; 85652; 86140